=== PATIENT | male | born 1935 | race Caucasian/White ===

== ENCOUNTER 2019-10-07 07:54 | Outpatient (CLI) | payer MEDICARE, OTHER, SELFPAY ==
[2019-10-07 08:33] LABS: Blood Urea Nitrogen 23 mg/dL (9-20); Calcium 9.4 mg/dL (8.4-10.2); Carbon Dioxide 27 mmol/L (22-30); Chloride 101 mmol/L (98-107); Estimated Glomerular Filt Rate 48; Glucose 188 mg/dL (75-110); Potassium 4.7 mmol/L (3.4-5.0); Sodium 139 mmol/L (137-145)
== END 2019-10-07 07:55 | disposition home or self-care (01) ==
PROVIDERS: PCP Family Medicine; Visit Provider Family Medicine
DX: N18.3 Chronic kidney disease, stage 3 (moderate) (principal)
CPT/HCPCS: 36415; 80048

== ENCOUNTER 2019-10-12 09:29 | Outpatient (CLI) | payer MEDICARE, OTHER, SELFPAY ==
[2019-10-12 10:21] LABS: Potassium 4.4 mmol/L (3.4-5.0)
[2019-10-12 10:27] LABS: Albumin Level 3.7 g/dL (3.5-5.1); Blood Urea Nitrogen 28 mg/dL (9-20); Carbon Dioxide 24 mmol/L (22-30); Chloride 105 mmol/L (98-107); Estimated Glomerular Filt Rate 45; Glucose 177 mg/dL (75-110); Phosphorus 3.2 mg/dL (2.5-4.5); Sodium 140 mmol/L (137-145)
[2019-10-12 12:11] LABS: Creatinine Urine 154.1 mg/dL; Total Protein Urine Random 6 mg/dL
== END 2019-10-12 09:30 | disposition home or self-care (01) ==
LOC: ANHLAB 09:34
PROVIDERS: PCP Family Medicine; Visit Provider Internal Medicine Nephrology
DX: N18.3 Chronic kidney disease, stage 3 (moderate) (principal); E11.9 Type 2 diabetes mellitus without complications; I10 Essential (primary) hypertension; R80.8 Other proteinuria
CPT/HCPCS: 36415; 80069; 82570; 84156

== ENCOUNTER 2020-04-12 09:13 | Outpatient (CLI) | payer MEDICARE, OTHER, SELFPAY ==
[2020-04-12 09:41] LABS: Total Protein Urine Random 7 mg/dL
[2020-04-12 09:50] LABS: Hemoglobin A1C 6.3 % (<5.7)
[2020-04-12 10:13] LABS: Albumin Level 3.9 g/dL (3.5-5.1); Anion Gap 6 mmol/L (8-16); Blood Urea Nitrogen 25 mg/dL (9-20); Calcium 9.3 mg/dL (8.4-10.2); Carbon Dioxide 24 mmol/L (22-30); Chloride 107 mmol/L (98-107); Estimated Glomerular Filt Rate 45; Glucose 156 mg/dL (75-110); Phosphorus 3.3 mg/dL (2.5-4.5); Potassium 4.3 mmol/L (3.4-5.0); Sodium 137 mmol/L (137-145)
[2020-04-12 10:25] LABS: Parathyroid Intact 35.7 pg/mL (7.5-53.5); Vitamin D 25 Hydroxy 54.9 ng/mL
[2020-04-12 10:27] LABS: Creatinine Urine 122.7 mg/dL
== END 2020-04-12 09:14 | disposition home or self-care (01) ==
PROVIDERS: PCP Family Medicine; Visit Provider Internal Medicine Nephrology
DX: R80.8 Other proteinuria (principal); E11.9 Type 2 diabetes mellitus without complications; I12.9 Hypertensive chronic kidney disease with stage 1 through stage 4 chronic kidney disease, or unspecified chronic kidney disease; N18.3 Chronic kidney disease, stage 3 (moderate)
CPT/HCPCS: 36415; 80069; 82306; 82570; 83036; 83970; 84156

== ENCOUNTER 2020-10-16 07:37 | Outpatient (CLI) | payer MEDICARE, OTHER, SELFPAY ==
[2020-10-16 08:06] LABS: Creatinine Urine 93.4 mg/dL; Total Protein Urine Random 7 mg/dL; Ur Ttl Prot Creatinine Ratio 0.07 mg/mg (0-0.20)
[2020-10-16 08:11] LABS: Albumin Level 3.7 g/dL (3.5-5.1); Anion Gap 4 mmol/L (8-16); Blood Urea Nitrogen 34 mg/dL (9-20); Calcium 9.3 mg/dL (8.4-10.2); Carbon Dioxide 28 mmol/L (22-30); Chloride 107 mmol/L (98-107); Estimated Glomerular Filt Rate 41; Glucose 141 mg/dL (75-110); Phosphorus 3.2 mg/dL (2.5-4.5); Potassium 4.1 mmol/L (3.4-5.0); Sodium 139 mmol/L (137-145)
== END 2020-10-16 07:38 | disposition home or self-care (01) ==
PROVIDERS: PCP Family Medicine; Visit Provider Internal Medicine Nephrology
DX: E11.9 Type 2 diabetes mellitus without complications (principal); I12.9 Hypertensive chronic kidney disease with stage 1 through stage 4 chronic kidney disease, or unspecified chronic kidney disease; N18.30 Chronic kidney disease, stage 3 unspecified; R80.8 Other proteinuria
CPT/HCPCS: 36415; 80069; 82570; 84156

== ENCOUNTER 2020-12-29 09:06 | Outpatient (CLI) | payer MEDICARE, OTHER, SELFPAY ==
[2020-12-29 10:02] LABS: Hematocrit 39.4 % (42.0-52.0); Hemoglobin 12.9 g/dL (14.0-18.0); Mean Corpuscular HGB Conc 32.7 g/dl (32-36); Mean Corpuscular Hemoglobin 29.9 pg (26-34); Mean Corpuscular Volume 91.4 fl (80-100); Mean Platelet Volume 9.7 fl (7.4-10.4); Platelet Count Result 154 k/mm3 (150-375); Red Blood Count 4.31 M/mm3 (4.6-6.20); Red Cell Distribution Width 14.1 % (11.5-14.5); White Blood Count 7.7 K/mm3 (4.5-10.0)
[2020-12-29 10:13] LABS: Alanine Aminotransferase 18 U/L (4-50); Alkaline Phosphatase 60 U/L (38-126); Anion Gap 4 mmol/L (8-16); Aspartate Amino Transferase 22 U/L (17-59); Bilirubin,Total 0.4 mg/dL (0.2-1.3); Blood Urea Nitrogen 32 mg/dL (9-20); Calcium 9.7 mg/dL (8.4-10.2); Carbon Dioxide 26 mmol/L (22-30); Chloride 110 mmol/L (98-107); Cholesterol 170 mg/dL (0-200); Estimated Glomerular Filt Rate 34; Glucose 160 mg/dL (75-110); HDL Direct 53 mg/dL; Potassium 4.6 mmol/L (3.4-5.0); Sodium 140 mmol/L (137-145); Triglycerides 79 mg/dL (<150); Uric Acid 5.8 mg/dL (3.5-8.5)
[2020-12-29 10:15] LABS: Hemoglobin A1C 6.6 % (<5.7)
[2020-12-29 10:25] LABS: LDL Cholesterol Direct 79 mg/dL
[2020-12-29 10:44] LABS: Prostate Specific Antigen 0.4 ng/mL (< OR = 4.0)
== END 2020-12-29 09:07 | disposition home or self-care (01) ==
PROVIDERS: PCP Family Medicine; Visit Provider Family Medicine
DX: E78.2 Mixed hyperlipidemia (principal); N40.0 Benign prostatic hyperplasia without lower urinary tract symptoms; Z12.5 Encounter for screening for malignant neoplasm of prostate; Z13.220 Encounter for screening for lipoid disorders; E11.9 Type 2 diabetes mellitus without complications; D64.9 Anemia, unspecified; M10.9 Gout, unspecified; N18.30 Chronic kidney disease, stage 3 unspecified
CPT/HCPCS: 36415; 80048; 80061; 80076; 83036; 84153; 84550; 85027; G0103

== ENCOUNTER 2021-03-08 20:00 | Inpatient (IN) | payer MEDICARE, OTHER, SELFPAY ==
--- NOTE | ~2021-03-08 | XR_ITS ---
EXAMINATION: XR abdomen/kub 1V INDICATION: Possible constipation, vomiting TECHNIQUE: Supine views of the abdomen were obtained on 2 radiographs. COMPARISON: None FINDINGS: There is a moderate volume of stool in the rectum. No dilated loops of bowel are evident. N o free intraperitoneal gas is identified. There is severe lumbar spondylosis. IMPRESSION: 1. Fecal impaction. Reviewed, dictated and finalized at location A. IMPRESSION: 1. Fecal impaction.
--- NOTE | ~2021-03-08 | CT_ITS ---
EXAMINATION: CT abdomen pelvis wo con DATE: 03/08/2021 22:17 INDICATION: Nausea and constipation TECHNIQUE: Computed tomography (CT) of the abdomen and pelvis was performed without intravenous contr ast. The dose-length product (DLP) was 912.38 mGy-cm. Automated exposure control and iterative recons truction technique were employed. COMPARISON: None FINDINGS: Minimal dependent atelectasis is present in the lung bases. The heart size is normal. There is calcified coronary artery atherosclerosis. A small pericardial effusion is present. There is a sm all sliding hiatal hernia. The liver, spleen, pancreas, gallbladder, and adrenal glands are normal. T here is an 8 mm hemorrhagic cyst of the right kidney. There is atrophy of the kidneys. The urinary bl adder is distended. There is a large volume of stool in the rectum. No pathologically enlarged abdomi nal or pelvic lymph nodes are identified. There is no free intraperitoneal gas or evidence of bowel o bstruction. There is severe lumbar spondylosis. IMPRESSION: 1. Marked distention of the urinary bladder. 2. Large volume of stool in the rectum. Reviewed, dictated and finalized at location A.
--- NOTE | ~2021-03-08 | XR_ITS ---
XR abdomen/kub 1V 03/09/2021 12:54 Indication: Fecal impaction Procedure: KUB Comparison: Comparison to multiple prior studies sequentially, with oldest reviewed study dated 03/08. Findings: Bowel gas pattern is nonobstructive. Moderate colonic fecal loading. No evidence for nephro lithiasis. Mild lumbar spondylosis. No acute osseous abnormality. Impression: 1: Nonobstructive bowel gas pattern. Reviewed, dictated and finalized at location A. Impression: 1: Nonobstructive bowel gas pattern.
--- NOTE | ~2021-03-08 | XR_ITS ---
EXAMINATION: XR abdomen/kub 1V DATE: 03/09/2021 09:33 INDICATION: Fecal impaction. TECHNIQUE: A supine view of the abdomen on 2 radiographs was obtained. COMPARISON: 06/08/2021 FINDINGS: No dilated loops of bowel to suggest obstruction. Interval decrease in a still moderate amount of sto ol at the rectum. Small heterotopic ossicle in the right abdomen. Severe lower lumbar spondylosis. IMPRESSION: 1. Decrease in a now moderate amount of stool at the rectum. Reviewed, dictated and finalized at location A.
--- NOTE | ~2021-03-08 | XR_ITS ---
EXAMINATION: XR abdomen/kub 1V INDICATION: Fecal impaction TECHNIQUE: Supine view of the abdomen is obtained COMPARISON: 03/09/2021 FINDINGS: There is an expected volume of colonic stool. No persistent fecal impaction is seen. The abimael wel gas pattern is normal. There is moderate osteoarthritis of the hips. Severe lumbar spondylosis is noted. IMPRESSION: 1. Expected volume of colonic stool without persistent fecal impaction. Reviewed, dictated and finalized at location A.
[2021-03-08 20:05] VITALS: BP 183/98; PULSE 97; RESP 18; O2SAT 99
--- NOTE | 2021-03-08 20:19 | PC.NURSE ---
Pt daughter to be updated by phone. [phone].
[2021-03-08 20:20] VITALS: PULSE 103
[2021-03-08 21:27] LABS: Basophils Percent Auto 0.2 % (0.2-1.2); Eosinophils Percent Auto 0.1 % (0-4.4); Hematocrit 39.4 % (42.0-52.0); Hemoglobin 13.5 g/dL (14.0-18.0); Immature Granulocyte Absolute 0.06 K/mm3 (0.00-0.031); Immature Granulocyte Percent A 0.4 % (0-0.5); Lymphocytes Absolute Auto 0.87 K/mm3 (0.9-3.2); Lymphocytes Percent Auto 5.9 % (18.3-44.2); Mean Corpuscular HGB Conc 34.3 g/dl (32-36); Mean Corpuscular Volume 87.6 fl (80-100); Mean Platelet Volume 9.4 fl (7.4-10.4); Monocytes Absolute Auto 0.7 K/mm3 (0.1-0.6); Neutrophils Absolute Auto 12.9 K/mm3 (1.3-6.7); Neutrophils Percent Auto 88.4 % (45.5-73.1); Platelet Count Result 165 k/mm3 (150-375); Red Cell Distribution Width 13.4 % (11.5-14.5); White Blood Count 14.7 K/mm3 (4.5-10.0)
[2021-03-08 21:30] VITALS: BP 181/98; PULSE 83; RESP 25; O2SAT 100
[2021-03-08 21:38] LABS: Alanine Aminotransferase 19 U/L (4-50); Albumin Level 4.2 g/dL (3.5-5.1); Alkaline Phosphatase 73 U/L (38-126); Anion Gap 16 mmol/L (8-16); Aspartate Amino Transferase 23 U/L (17-59); Bilirubin,Total 0.7 mg/dL (0.2-1.3); Blood Urea Nitrogen 30 mg/dL (9-20); Calcium 9.9 mg/dL (8.4-10.2); Carbon Dioxide 16 mmol/L (22-30); Chloride 106 mmol/L (98-107); Estimated CRCL calculation 32 ml/min; Estimated Glomerular Filt Rate 36; Glucose 157 mg/dL (65-110); Potassium 4.1 mmol/L (3.4-5.0); Sodium 138 mmol/L (137-145)
[2021-03-08 22:00] VITALS: BP 181/94; PULSE 88; RESP 22; O2SAT 100
--- NOTE | 2021-03-08 22:00 | PC.NURSE ---
Pt unable to void at this time. Refusing straight catheter at this time. Urinal remains at bedside.
--- NOTE | 2021-03-08 22:06 | ED.GENADULT ---
HPI - General Adult General Chief complaint: Unspecified Stated complaint: Possible constipation Time Seen by Provider: 03/08/21 20:40 Source: patient History of Present Illness HPI narrative: Patient is a 85 y/o male complaining of generalized abdominal pain for last 3 days. He describes his pain as cramping and rates it as 8/10. There is no pain radiation. There is no alleviating or exacerbating factor. He had one episode of vomiting. He also feels constipated. His last BM was 3 days ago. Related Data Home Medications Medication Instructions Recorded Confirmed albuterol sulfate 90 mcg/actuation 1 puff INHALATION Q4H PRN 07/12/19 03/09/21 aerosol inhaler Januvia 100 mg PO QPM 03/09/21 03/09/21 Toviaz 4 mg PO QAM 03/09/21 03/09/21 aspirin [Adult Aspirin] 81 mg PO DAILY 03/09/21 03/09/21 febuxostat 40 mg PO QPM 03/09/21 03/09/21 finasteride 5 mg PO QPM 03/09/21 03/09/21 lisinopril 10 mg PO QAM 03/09/21 03/09/21 simvastatin 20 mg PO QPM 03/09/21 03/09/21 Allergies Allergy/AdvReac Type Severity Reaction Status Date / Time amoxicillin Allergy Unknown Rash Verified 03/09/21 02:51 Penicillins Allergy Unknown Rash Verified 12/29/20 07:33 Sulfa (Sulfonamide Allergy Unknown Rash Verified 03/09/21 02:51 Antibiotics) sulfanilamide Allergy Unknown Rash Verified 03/09/21 02:51 sulfur dioxide Allergy Unknown Rash Verified 03/09/21 02:51 tetracycline Allergy Unknown Rash Verified 03/09/21 02:51 Review of Systems Constitutional: Constitutional: Denies chills, Denies fever(s), Denies headache(s) and Denies weakness Eyes: Eyes: Denies blurry vision ENT: Denies headache(s) and Denies neck pain Cardiovascular: Cardiovascular: Denies chest pain and Denies dyspnea Respiratory: Respiratory: Denies cough and Denies dyspnea Gastrointestinal: Gastrointestinal: Reports abdominal pain, Denies diarrhea, Reports nausea and Reports vomiting Genitourinary: Genitourinary: Denies hematuria and Denies dysuria Musculoskeletal: Musculoskeletal: Denies back pain and Denies neck pain Neurologic: Denies headache(s) and Denies weakness [facility] Past Medical History Medical History Anemia, unspecified BMI 31.0-31.9,adult BPH w/o urinary obs/LUTS Gout, unspecified HTN (hypertension) Mixed hyperlipidemia ERNIE on CPAP Primary insomnia Primary osteoarthritis of both knees Type 2 diabetes mellitus without complications Family History Family History Sibling Hypertension Cerebrovascular accident Family history of diabetes mellitus in first degree relative Family history of coronary artery disease Family history of malignant neoplasm of breast in first degree relative Diabetes mellitus Father Family history of coronary artery disease Social History Social History Smoking packs per day: 2 Smoking cigarettes per day: 40.0 Years smoked: 40 Smoking pack-years: 80.00 Smoking status: Former smoker Tobacco type: cigarettes and cigars Second hand tobacco smoke exposure: No Alcohol intake: never Substance use: never Gender identity (if verbalized by the patient): Male Spiritual care concerns: No Exam Const: General: no acute distress and well developed Orientation/consciousness: oriented to person, oriented to place, oriented to time and patient oriented x3 HENMT: Head: normocephalic Ears: external ears normal General nose exam: Normal external nose present Eyes: General: appearance normal, both eyes and all related structures Conjunctivae: conjunctivae normal Neck: Neck: normal visual inspection and full ROM Chest: Chest palpation & inspection: normal inspection of the chest and no tenderness Resp: Effort & Inspection: normal respiratory effort Auscultation: clear to auscultation bilaterally Cardio: Rate: regular rate Rhythm: regular r
[2021-03-08] MEDS: MAGNESIUM CITRATE 300 ML BTL PO (22:07)
--- NOTE | 2021-03-08 22:08 | PC.NURSE ---
Pt to CT at this time.
[2021-03-09 00:19] LABS: Add Urine Microscopic? YES; Appearance Urine Clear (Clear); Bacteria Urine Trace /hpf; Bilirubin Urine Negative (Negative); Blood Urine 3+ (Negative); Color Urine Yellow (Yellow); Glucose Urine UA Negative (Negative); Ketones Urine Trace mg/dL (Negative); Leukocyte Esterase Ur Negative LEU/UL (Negative); Nitrate Urine Negative (Negative); Protein Urine Negative (Negative); RBC Urine >75 /hpf (0-2); Specific Grav Ur 1.013 (1.001-1.035); Urobilinogen Urine Negative mg/dL (<2.0)
[2021-03-09 00:51] VITALS: BP 142/72; PULSE 88; RESP 17; O2SAT 98
[2021-03-09 01:38] VITALS: BP 174/80; PULSE 95; RESP 20; TEMP 36.6; O2SAT 99
[2021-03-09 01:59] VITALS: BMI 29.6
--- NOTE | 2021-03-09 02:03 | PC.NURSE ---
This patient, Rolf Webster, was admitted to 3 [facility] Surg Room 327-01. Patient/family oriented to hospital policies and general routines including ID bracelet, bed and alarms, visiting hours, pain management, procedures, bathroom and other care routines, personal items, smoking policy, room service/diet, and visiting hours. Information on how to activate the Rapid Response Team has been discussed. Patient/Family are encouraged to report perceived risks to care and to ask questions if they do not understand what they are told or what they should do.
[2021-03-09] MEDS: SODIUM CHLORIDE 0.9% IV 1,000 ML 125 ML IV CONT (02:31)
[2021-03-09 05:23] VITALS: BP 135/60; PULSE 69; RESP 18; TEMP 36.4; O2SAT 98
[2021-03-09 08:48] LABS: Glucose Point of Care 179 mg/dl (65-105)
[2021-03-09] MEDS: ASPIRIN 81 MG ENTERIC TABLET PO (09:56)
[2021-03-09] MEDS: lisinopriL 10 MG TABLET PO (09:56)
[2021-03-09 12:01] LABS: Hematocrit 37.1 % (42.0-52.0); Hemoglobin 12.2 g/dL (14.0-18.0); Mean Corpuscular HGB Conc 32.9 g/dl (32-36); Mean Corpuscular Hemoglobin 29.5 pg (26-34); Mean Corpuscular Volume 89.6 fl (80-100); Mean Platelet Volume 9.3 fl (7.4-10.4); Platelet Count Result 152 k/mm3 (150-375); Red Blood Count 4.14 M/mm3 (4.6-6.20); Red Cell Distribution Width 13.6 % (11.5-14.5); White Blood Count 12.8 K/mm3 (4.5-10.0)
[2021-03-09 12:10] LABS: Anion Gap 7 mmol/L (8-16); Blood Urea Nitrogen 30 mg/dL (9-20); Calcium 9.2 mg/dL (8.4-10.2); Carbon Dioxide 27 mmol/L (22-30); Chloride 107 mmol/L (98-107); Estimated CRCL calculation 31 ml/min; Estimated Glomerular Filt Rate 41; Glucose 152 mg/dL (65-110); Potassium 4.6 mmol/L (3.4-5.0); Sodium 141 mmol/L (137-145)
[2021-03-09 13:15] LABS: Glucose Point of Care 107 mg/dl (65-105)
--- NOTE | 2021-03-09 13:28 | WPDURCON ---
Assessment and Plan Assessment and plan (1) BPH w/o urinary obs/LUTS: Code(s): N40.0 - Benign prostatic hyperplasia without lower urinary tract symptoms Status: Acute Assessment and Plan: Patient has been on Finasteride for >6 years, continue Finasteride. Start Flomax. Ok to do a voiding trial prior to discharge. (2) UTI (urinary tract infection): Code(s): N39.0 - Urinary tract infection, site not specified Status: Acute Assessment and Plan: Will reflux UA to culture and start antibiotics, secondary to retention. (3) Retention of urine: Code(s): R33.9 - Retention of urine, unspecified Status: Acute Assessment and Plan: Secondary to constipation versus failure of Finasteride. Follow up in the office in 2-[address] Walker. No further evaluation needed. Urology Consult Note HPI Date Seen: 03/09/21 Requesting Physician: Danielle Moreau PA-C Primary Care Provider: Gavino Erickson MD Consult Narrative Narrative: Rolf Webster is a 85 year old male who presented to the ER yesterday with acute onset of pain in the abdomen and difficulty urinating. He denies dysuria, hematuria, flank pain or nausea at this time, but did have one episode of vomiting. His WBC was elevated but is decreasing, now it is at 14.7 as of yesterday and creatinine of 1.80. His WBC today is 12.9 and creatinine is decreasing as well to 1.60. He states he has CKD and see's Dr. Polk. His CT scan in the ER shows a distended bladder and a large amount of stool in the rectum as well as kidney atrophy. He states he is a patient of Dr. Walker' and has been on Finasteride for 6 years and has never had retention before that required a catheter. Once his merritt was placed he states >1000cc was removed, his urine is dark mateo in color and slightly cloudy. His UA was suspicious of a UTI, no culture was obtained. Review of Systems Cardiovascular: Cardiovascular: Reports no additional cardiovascular complaints and Denies chest pain Respiratory: Respiratory: Reports no additional respiratory complaints Gastrointestinal: Gastrointestinal: Denies abdominal pain, Denies nausea and Denies vomiting Genitourinary: Genitourinary: Denies hematuria, Denies dysuria, Denies flank pain, Denies urinary frequency, Reports urinary hesitancy and Denies urinary urgency [facility] Past Medical History Medical History BMI 31.0-31.9,adult Family History Family History Sibling Hypertension Cerebrovascular accident Family history of diabetes mellitus in first degree relative Family history of coronary artery disease Family history of malignant neoplasm of breast in first degree relative Diabetes mellitus Father Family history of coronary artery disease Social History Social History Smoking packs per day: 2 Smoking cigarettes per day: 40.0 Years smoked: 40 Smoking pack-years: 80.00 Smoking status: Former smoker Tobacco type: cigarettes and cigars Second hand tobacco smoke exposure: No Alcohol intake: never Substance use: never Gender identity (if verbalized by the patient): Male Spiritual care concerns: No Meds Home Medications and Allergies Home Medications Medication Instructions Recorded Confirmed Type albuterol sulfate 90 mcg/actuation 1 puff INHALATION Q4H PRN 07/12/19 03/09/21 History aerosol inhaler blood sugar diagnostic #300 each 08/29/20 03/09/21 Rx glimepiride 2 mg tablet 2 mg PO QAM #90 tablet 02/16/21 03/09/21 Rx Januvia 100 mg PO QPM 03/09/21 03/09/21 History Toviaz 4 mg PO QAM 03/09/21 03/09/21 History aspirin [Adult Aspirin] 81 mg PO DAILY 03/09/21 03/09/21 History febuxostat 40 mg PO QPM 03/09/21 03/09/21 History finasteride 5 mg PO QPM 03/09/21 03/09/21 History lisinopril 10 mg PO QAM 03/09/21 07
--- NOTE | 2021-03-09 13:41 | PM.IMPN ---
Progress Note: A&P Time Spent With Patient Time with patient: 25 - 35 minutes Subjective Date/time seen: 03/09/21 13:41 Interval history: * Review of Systems Review of Systems: All systems reviewed & are unremarkable except as noted in HPI and below Exam Narrative: General: *-year-old * laying flat in bed. Appears comfortable. In no acute distress. Skin: No jaundice or cyanosis. Good skin turgor. Neck: Full range of motion. Supple. Nontender. Respiratory: Lungs are clear to auscultation bilaterally. No bony chest wall tenderness. Cardiovascular: The heart has a regular rate and rhythm without murmur. No carotid bruits. Lower extremities: No lower extremity edema. Distal pulses are easily palpated. No calf tenderness to palpation. Gastrointestinal: The abdomen is soft, nontender and nondistended with active bowel sounds. Psychiatric: Lucid and oriented. Memory intact. Neurologic: No focal deficits. Speech is clear. No facial drooping. Objective Data Vital Signs Vital Signs: Vital Signs - 24 hr 03/08/21 20:05 03/08/21 20:20 03/08/21 21:30 Temperature Pulse Rate 97 103 H 83 Respiratory Rate 18 25 H Blood Pressure 183/98 H 181/98 H Pulse Oximetry 99 100 03/08/21 22:00 03/09/21 00:51 03/09/21 01:38 Temperature 97.8 F Pulse Rate 88 88 95 Respiratory Rate 22 H 17 20 Blood Pressure 181/94 H 142/72 H 174/80 H Pulse Oximetry 100 98 99 03/09/21 05:23 Temperature 97.5 F L Pulse Rate 69 Respiratory Rate 18 Blood Pressure 135/60 Pulse Oximetry 98 Intake/Output Intake/Output: Intake & Output 03/06/21 03/07/21 03/08/21 03/09/21 23:59 23:59 23:59 23:59 Intake Total 1340 Output Total 1 Balance 1339 Meds/Results Medications: Active Medications Generic Name Dose Route Start Last Admin Trade Name Freq PRN Reason Stop Dose Admin Albuterol 1 puff 03/09/21 08:41 Albuterol Sulfate (*Sp) Aerosol 1 Puff INHALATION Q4HRT PRN Shortness Of Breath Or Wheezing Aspirin 81 mg 03/09/21 09:00 03/09/21 09:56 Aspirin 81 Mg Enteric Tablet PO 81 mg QAM POPPY Administration Dextrose 12.5 gm 03/09/21 08:42 Dextrose 50% 25 Gm/50 Ml Syringe IV PUSH PRN PRN Hypoglycemia Protocol Docusate Sodium 100 mg 03/09/21 21:00 Docusate Sodium 100 Mg Capsule PO Q12HR [facility] Finasteride 5 mg 03/09/21 18:00 Finasteride 5 Mg Tablet PO QPM [facility] Glucagon 1 mg 03/09/21 08:42 Glucagon For Inj 1 Mg Vial IM PRN PRN Hypoglycemia Protocol Glucose 15 gm 03/09/21 08:42 Glucose Oral Gel 15 Gm Of Glucse In 37.5 Gm Tube PO PRN PRN Hypoglycemia Protocol Dextrose 1,000 mls @ 100 mls/hr 03/09/21 08:42 Dextrose 5% 1,000 Ml IVPB PRN PRN Hypoglycemia Protocol Insulin Aspart 3 - 6 units 03/09/21 12:00 03/09/21 13:24 Insulin Aspart (*Bkc) 100 Units/Ml SUB-Q Not Given TIDWM [facility] Protocol Lisinopril 10 mg 03/09/21 09:00 03/09/21 09:56 Lisinopril 10 Mg Tablet PO 10 mg QAM [facility] Administration Polyethylene Glycol 17 gm 03/10/21 09:00 Polyethylene Glycol 3350 17 Gm Powd.Pack PO QAM [facility] Simvastatin 20 mg 03/09/21 18:00 Simvastatin 20 Mg Tablet PO QPM [facility] Radiology Results: ITS Impressions Abdomen/Pelvis CT 03/08/21 22:19 IMPRESSION: 1. Marked distention of the urinary bladder. 2. Large volume of stool in the rectum. Abdomen X-Ray 03/09/21 13:18 Impression: 1: Nonobstructive bowel gas pattern. Labs Labs: Laboratory Results - last 24 hr 03/08/21 03/08/21 03/09/21 21:22 21:22 00:07 WBC 14.7 H RBC 4.50 L Hgb 13.5 L Hct 39.4 L MCV 87.6 MCH 30.0 MCHC 34.3 RDW 13.4 Plt Count 165 MPV 9.4 Immature Gran % (Auto) 0.4 Neut % (Auto) 88.4 H Lymph % (Auto) 5.9 L Ward % (Auto) 5.0 Eos % (Auto) 0.1 Baso % (Auto) 0.2 Lymph # (Auto) 0.87 L Ward # (Auto) 0.7 H Eos #
[2021-03-09 14:00] VITALS: BP 134/60; PULSE 60; RESP 16; TEMP 36.2; O2SAT 100
--- NOTE | 2021-03-09 16:20 | PM.IMHP ---
H&P: HPI History of Present Illness Date/Time: 03/09/21 16:20 Chief Complaint: The patient is an 85-year-old man with a history of diabetes, hyperlipidemia, BPH, who presented to the emergency room with abdominal pain, constipation. the patient's daughter states he has had issues with constipation over the last several months. He only takes p.r.n. stool softeners. His last bowel movement was Friday03/05/21 and since then he has been feeling more constipated, with some nausea, abdominal bloating and discomfort. He also reports having issues with urinary retention since then as well. He does not feel like he has been emptying his bladder completely. He denies any burning with urination, frequent urination, but he has noticed a dark color to his urine. he denies any fevers, chills, chest pain, shortness of breath, cough, vomiting, leg swelling, calf pain, or any other symptoms at this time. Review of Systems Review of Systems: All systems reviewed & are unremarkable except as noted in HPI and below PMFSH Past Medical History Medical History Anemia, unspecified BMI 31.0-31.9,adult BPH w/o urinary obs/LUTS Gout, unspecified HTN (hypertension) Mixed hyperlipidemia ERNIE on CPAP Primary insomnia Primary osteoarthritis of both knees Type 2 diabetes mellitus without complications Family History Family History Sibling Hypertension Cerebrovascular accident Family history of diabetes mellitus in first degree relative Family history of coronary artery disease Family history of malignant neoplasm of breast in first degree relative Diabetes mellitus Father Family history of coronary artery disease Social History Social History Smoking packs per day: 2 Smoking cigarettes per day: 40.0 Years smoked: 40 Smoking pack-years: 80.00 Smoking status: Former smoker Tobacco type: cigarettes and cigars Second hand tobacco smoke exposure: No Alcohol intake: never Substance use: never Gender identity (if verbalized by the patient): Male Spiritual care concerns: No Meds Home Medications and Allergies Home Medications Medication Instructions Recorded Confirmed Type albuterol sulfate 90 mcg/actuation 1 puff INHALATION Q4H PRN 07/12/19 03/09/21 History aerosol inhaler blood sugar diagnostic #300 each 08/29/20 03/09/21 Rx glimepiride 2 mg tablet 2 mg PO QAM #90 tablet 02/16/21 03/09/21 Rx Januvia 100 mg PO QPM 03/09/21 03/09/21 History Toviaz 4 mg PO QAM 03/09/21 03/09/21 History aspirin [Adult Aspirin] 81 mg PO DAILY 03/09/21 03/09/21 History febuxostat 40 mg PO QPM 03/09/21 03/09/21 History finasteride 5 mg PO QPM 03/09/21 03/09/21 History lisinopril 10 mg PO QAM 03/09/21 03/09/21 History simvastatin 20 mg PO QPM 03/09/21 03/09/21 History Allergies Allergy/AdvReac Type Severity Reaction Status Date / Time amoxicillin Allergy Unknown Rash Verified 03/09/21 02:51 Penicillins Allergy Unknown Rash Verified 12/29/20 07:33 Sulfa (Sulfonamide Allergy Unknown Rash Verified 03/09/21 02:51 Antibiotics) sulfanilamide Allergy Unknown Rash Verified 03/09/21 02:51 sulfur dioxide Allergy Unknown Rash Verified 03/09/21 02:51 tetracycline Allergy Unknown Rash Verified 03/09/21 02:51 Vital Signs Vital Signs - 24 hr 03/08/21 20:05 03/08/21 20:20 03/08/21 21:30 Temperature Pulse Rate 97 103 H 83 Respiratory Rate 18 25 H Blood Pressure 183/98 H 181/98 H Pulse Oximetry 99 100 03/08/21 22:00 03/09/21 00:51 03/09/21 01:38 Temperature 97.8 F Pulse Rate 88 88 95 Respiratory Rate 22 H 17 20 Blood Pressure 181/94 H 142/72 H 174/80 H Pulse Oximetry 100 98 99 03/09/21 05:23 03/09/21 14:00 Temperature 97.5 F L 97.1 F L Pulse Rate 69 60 Respiratory Rate 18 16 Blood Pressure 135/60 134/60 Pulse Oximetry 98 100 Exam Na
[2021-03-09] MEDS: FINASTERIDE 5 MG TABLET PO (17:11)
[2021-03-09] MEDS: SIMVASTATIN 20 MG TABLET PO (17:11)
[2021-03-09 17:22] LABS: Glucose Point of Care 100 mg/dl (65-105)
[2021-03-09] MEDS: ENOXAPARIN 40 MG/0.4 ML SYRINGE SUB-Q (17:57)
[2021-03-09] MEDS: DOCUSATE SODIUM 100 MG CAPSULE PO (20:25)
[2021-03-09 20:31] LABS: Glucose Point of Care 199 mg/dl (65-105)
[2021-03-09 22:00] VITALS: BP 131/60; PULSE 62; RESP 18; TEMP 36.4; O2SAT 95
[2021-03-10 05:59] LABS: Basophils Percent Auto 0.4 % (0.2-1.2); Eosinophils Absolute Auto 0.3 K/mm3 (0-0.3); Eosinophils Percent Auto 3.6 % (0-4.4); Hematocrit 34.9 % (42.0-52.0); Hemoglobin 11.5 g/dL (14.0-18.0); Immature Granulocyte Absolute 0.03 K/mm3 (0.00-0.031); Immature Granulocyte Percent A 0.3 % (0-0.5); Lymphocytes Absolute Auto 2.25 K/mm3 (0.9-3.2); Lymphocytes Percent Auto 24.7 % (18.3-44.2); Mean Corpuscular Hemoglobin 29.6 pg (26-34); Mean Corpuscular Volume 89.9 fl (80-100); Mean Platelet Volume 9.7 fl (7.4-10.4); Monocytes Absolute Auto 1.1 K/mm3 (0.1-0.6); Monocytes Percent Auto 11.8 % (2.6-8.5); Neutrophils Absolute Auto 5.4 K/mm3 (1.3-6.7); Neutrophils Percent Auto 59.2 % (45.5-73.1); Platelet Count Result 141 k/mm3 (150-375); Red Blood Count 3.88 M/mm3 (4.6-6.20); Red Cell Distribution Width 13.5 % (11.5-14.5); White Blood Count 9.1 K/mm3 (4.5-10.0)
[2021-03-10 06:00] VITALS: BP 131/60; PULSE 62; RESP 18; TEMP 37.2; O2SAT 97
[2021-03-10 06:08] LABS: Anion Gap 5 mmol/L (8-16); Blood Urea Nitrogen 26 mg/dL (9-20); Calcium 8.6 mg/dL (8.4-10.2); Carbon Dioxide 24 mmol/L (22-30); Chloride 107 mmol/L (98-107); Estimated CRCL calculation 36 ml/min; Estimated Glomerular Filt Rate 48; Glucose 136 mg/dL (65-110); Potassium 3.9 mmol/L (3.4-5.0); Sodium 136 mmol/L (137-145)
[2021-03-10] MEDS: lisinopriL 10 MG TABLET PO (09:38)
[2021-03-10] MEDS: polyethylene glycoL 3350 17 GM POWD.PACK PO (09:38)
[2021-03-10] MEDS: ASPIRIN 81 MG ENTERIC TABLET PO (09:38)
[2021-03-10] MEDS: DOCUSATE SODIUM 100 MG CAPSULE PO ×2 (09:38→21:28)
--- NOTE | 2021-03-10 10:23 | PC.NURSE ---
Per [employer] this patient's blood sugar was 155 and does not need insulin this morning. The glucometers are not documenting at this moment.
[2021-03-10 11:19] LABS: Glucose Point of Care 155 mg/dl (65-105)
[2021-03-10 12:10] LABS: Glucose Point of Care 182 mg/dl (65-105)
[2021-03-10 14:00] VITALS: BP 149/62; PULSE 66; RESP 14; TEMP 36.8; O2SAT 98
[2021-03-10 14:57] VITALS: O2SAT 96
--- NOTE | 2021-03-10 15:21 | PM.IMPN ---
Progress Note: A&P Assessment and Plan (1) Fecal impaction: Code(s): K56.41 - Fecal impaction Status: Acute Assessment and Plan: Improved s/p magnesium citrate and enema He has had multiple bowel movements Repeat KUB this a.m.-->Expected volume of colonic stool without persistent fecal impaction Continue with Colace twice daily, MiraLax in the morning, and enema p.r.n. (2) UTI (urinary tract infection): Code(s): N39.0 - Urinary tract infection, site not specified Status: Acute Assessment and Plan: Concer for UTI Continue IV Levaquin (allergy to PCNs) Follow Urology following, recommendations appreciated Continue Flomax and finasteride will initiated voiding trial (3) Retention of urine: Code(s): R33.9 - Retention of urine, unspecified Status: Acute Assessment and Plan: Treatment as above (4) Chronic kidney disease, stage 3 (moderate): Qualifiers: Chronic kidney disease stage 3 subtype: stage 3b (GFR 30-44) Qualified Code(s): N18.32 - Chronic kidney disease, stage 3b Code(s): N18.3 - Chronic kidney disease, stage 3 (moderate) Status: Acute Assessment and Plan: Creatinine is 1.6-->1.4 today Avoid nephrtoxins Renally dose all meds Monitor (5) Type 2 diabetes mellitus without complications: Qualifiers: Diabetes mellitus assisted insulin use: without assisted use Qualified Code(s): E11.9 - Type 2 diabetes mellitus without complications Code(s): E11.9 - Type 2 diabetes mellitus without complications Status: Acute Assessment and Plan: A1c 6.6 12/2020 Hold oral antihyperglycemics SSI, accuchecks Monitor Additional Plan the patient was placed in observation status DVT prophylaxis with subcu Lovenox Subjective Date/time seen: 03/10/21 15:21 Interval history: Pt seen and evaluated; daughter at the bedside; abdominal distension improved; denies any N/V/D constipation or abdominal pain Review of Systems Review of Systems: All systems reviewed & are unremarkable except as noted in HPI and below Exam Const: General: no acute distress, alert and awake Orientation/consciousness: patient oriented x3 HENMT: Head: normocephalic and atraumatic Ears: hearing grossly normal bilaterally and external ears normal Face and sinus: face symmetric Mouth: Yes Normal oral and palatal mucosa present Eyes: Pupils: Equal, round and reactive pupils present EOM: EOMs intact bilaterally Neck: Neck: full ROM, trachea midline and no JVD Thyroid: thyroid normal Chest: Chest palpation & inspection: normal inspection of the chest Resp: Effort & Inspection: normal respiratory effort Auscultation: clear to auscultation bilaterally Cardio: Jugular venous distension: no JVD Rate: regular rate Rhythm: regular rhythm Heart sounds: S1 normal heart sound present and S2 normal heart sound present GI: Inspection: normal to inspection GI Palp: Yes Soft to palpation Percussion: Yes normal to percussion Auscultation: normal bowel sounds : General: Yes no CVA tenderness Urinary Catheter: Urinary Catheter: patent and draining and urine clear Back/Spine/Pelvis: Back: no CVA tenderness Skin: General skin exam: normal color Rashes: no rashes Neuro: General: patient oriented x3 and CN's II-XI intact bilaterally Cranial nerves: Yes Equal, round and reactive pupils present Speech: normal speech Psych: Appearance: grossly normal Affect: normal affect Judgement: Good judgement present (Psych) Objective Data Vital Signs Vital Signs: Vital Signs - 24 hr 03/09/21 22:00 03/10/21 06:00 03/10/21 14:00 Temperature 36.4 C L 37.2 C 36.8 C Pulse Rate 62 62 66 Respiratory Rate 18 18 14 Blood Pressure 131/60 131/60 149/62 H Pulse Oximetry 95 97 98 03/10/21 14:57 Temperature Pulse Rate Respiratory Rate Blood Pressure Pulse Oximetry 96 Intake/Output Inta
[2021-03-10 16:46] LABS: Glucose Point of Care 143 mg/dl (65-105)
[2021-03-10] MEDS: FINASTERIDE 5 MG TABLET PO (17:04)
[2021-03-10] MEDS: SIMVASTATIN 20 MG TABLET PO (17:04)
[2021-03-10] MEDS: ENOXAPARIN 40 MG/0.4 ML SYRINGE SUB-Q (17:05)
[2021-03-10 21:32] LABS: Glucose Point of Care 161 mg/dl (65-105)
[2021-03-10 21:52] VITALS: PULSE 71; O2SAT 94
[2021-03-10 22:00] VITALS: BP 140/61; PULSE 60; RESP 16; TEMP 36.4; O2SAT 97
[2021-03-10 23:21] VITALS: PULSE 79; O2SAT 93
[2021-03-11 06:00] VITALS: BP 140/67; PULSE 51; RESP 16; TEMP 36.7; O2SAT 98
[2021-03-11 06:10] LABS: Basophils Absolute Auto 0.1 K/mm3 (0.0-0.1); Basophils Percent Auto 0.6 % (0.2-1.2); Eosinophils Absolute Auto 0.3 K/mm3 (0-0.3); Eosinophils Percent Auto 4.1 % (0-4.4); Hemoglobin 12.2 g/dL (14.0-18.0); Immature Granulocyte Absolute 0.02 K/mm3 (0.00-0.031); Immature Granulocyte Percent A 0.3 % (0-0.5); Lymphocytes Absolute Auto 2.67 K/mm3 (0.9-3.2); Lymphocytes Percent Auto 33.5 % (18.3-44.2); Mean Corpuscular Hemoglobin 29.4 pg (26-34); Mean Corpuscular Volume 89.2 fl (80-100); Mean Platelet Volume 9.8 fl (7.4-10.4); Monocytes Percent Auto 12.4 % (2.6-8.5); Neutrophils Absolute Auto 3.9 K/mm3 (1.3-6.7); Neutrophils Percent Auto 49.1 % (45.5-73.1); Platelet Count Result 160 k/mm3 (150-375); Red Blood Count 4.15 M/mm3 (4.6-6.20); Red Cell Distribution Width 13.2 % (11.5-14.5)
[2021-03-11 06:18] LABS: Anion Gap 6 mmol/L (8-16); Blood Urea Nitrogen 22 mg/dL (9-20); Calcium 9.1 mg/dL (8.4-10.2); Carbon Dioxide 26 mmol/L (22-30); Chloride 104 mmol/L (98-107); Estimated CRCL calculation 36 ml/min; Estimated Glomerular Filt Rate 48; Glucose 157 mg/dL (65-110); Potassium 4.5 mmol/L (3.4-5.0); Sodium 136 mmol/L (137-145)
[2021-03-11] MEDS: lisinopriL 10 MG TABLET PO (07:38)
[2021-03-11] MEDS: ASPIRIN 81 MG ENTERIC TABLET PO (07:38)
[2021-03-11] MEDS: DOCUSATE SODIUM 100 MG CAPSULE PO ×2 (07:38→21:48)
[2021-03-11] MEDS: polyethylene glycoL 3350 17 GM POWD.PACK PO (07:38)
[2021-03-11 11:48] LABS: Glucose Point of Care 137 mg/dl (65-105)
--- NOTE | 2021-03-11 13:37 | PM.IMPN ---
Progress Note: A&P Assessment and Plan (1) Fecal impaction: Code(s): K56.41 - Fecal impaction Status: Acute Assessment and Plan: Improved s/p magnesium citrate and enema He has had multiple bowel movements Repeat KUB this a.m.-->Expected volume of colonic stool without persistent fecal impaction Continue with Colace twice daily, MiraLax in the morning, and enema p.r.n. (2) UTI (urinary tract infection): Code(s): N39.0 - Urinary tract infection, site not specified Status: Acute Assessment and Plan: R/o S/p IV Levaquin (allergy to PCNs) UC with no growth Urology following, recommendations appreciated Continue Flomax and finasteride Voiding trial initiated (3) Retention of urine: Code(s): R33.9 - Retention of urine, unspecified Status: Acute Assessment and Plan: Treatment as above If persist may need to d/c with Hollingsworth cath (4) Chronic kidney disease, stage 3 (moderate): Qualifiers: Chronic kidney disease stage 3 subtype: stage 3b (GFR 30-44) Qualified Code(s): N18.32 - Chronic kidney disease, stage 3b Code(s): N18.3 - Chronic kidney disease, stage 3 (moderate) Status: Acute Assessment and Plan: Creatinine is 1.6-->1.4-->1.4 today Avoid nephrotoxins Renally dose all meds Monitor (5) Type 2 diabetes mellitus without complications: Qualifiers: 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: without middle or intermediate school principal use Qualified Code(s): E11.9 - Type 2 diabetes mellitus without complications Code(s): E11.9 - Type 2 diabetes mellitus without complications Status: Acute Assessment and Plan: A1c 6.6 12/2020 Hold oral antihyperglycemics SSI, accuchecks Monitor Additional Plan the patient was placed in observation status DVT prophylaxis with subcu Lovenox Subjective Date/time seen: 03/11/21 13:37 Interval history: Pt seen and evaluated; denies any N/V/D constipation or abdominal pain, no acute events overnight Review of Systems Review of Systems: All systems reviewed & are unremarkable except as noted in HPI and below Exam Const: General: no acute distress, alert and awake Orientation/consciousness: patient oriented x3 HENMT: Head: normocephalic and atraumatic Ears: hearing grossly normal bilaterally and external ears normal Face and sinus: face symmetric Mouth: Yes Normal oral and palatal mucosa present Eyes: Pupils: Equal, round and reactive pupils present EOM: EOMs intact bilaterally Neck: Neck: full ROM, trachea midline and no JVD Thyroid: thyroid normal Chest: Chest palpation & inspection: normal inspection of the chest Resp: Effort & Inspection: normal respiratory effort Auscultation: clear to auscultation bilaterally Cardio: Jugular venous distension: no JVD Rate: regular rate Rhythm: regular rhythm Heart sounds: S1 normal heart sound present and S2 normal heart sound present GI: Inspection: normal to inspection Auscultation: normal bowel sounds : General: Yes no CVA tenderness Urinary Catheter: Urinary Catheter: patent and draining and urine clear Back/Spine/Pelvis: Back: no CVA tenderness Skin: General skin exam: normal color Rashes: no rashes Neuro: General: patient oriented x3 and CN's II-XI intact bilaterally Cranial nerves: Yes Equal, round and reactive pupils present Speech: normal speech Psych: Appearance: grossly normal Affect: normal affect Judgement: Good judgement present (Psych) Objective Data Vital Signs Vital Signs: Vital Signs - 24 hr 03/10/21 14:00 03/10/21 14:57 03/10/21 21:52 Temperature 36.8 C Pulse Rate 66 71 Respiratory Rate 14 Blood Pressure 149/62 H Pulse Oximetry 98 96 94 03/10/21 22:00 03/10/21 23:21 03/11/21 06:00 Temperature 36.4 C L 36.7 C Pulse Rate 60 79 51 L Respiratory Rate 16 16 Blood Pressure 140/61 140/67 Pulse Oximetry 97 93 98 Intake/Output Intake/Outpu
[2021-03-11 15:25] VITALS: BP 167/72; PULSE 66; RESP 14; TEMP 36.8; O2SAT 99
[2021-03-11] MEDS: SIMVASTATIN 20 MG TABLET PO (17:31)
[2021-03-11] MEDS: FINASTERIDE 5 MG TABLET PO (17:32)
[2021-03-11] MEDS: ENOXAPARIN 40 MG/0.4 ML SYRINGE SUB-Q (17:32)
[2021-03-11 18:18] LABS: Glucose Point of Care 131 mg/dl (65-105)
[2021-03-11 22:00] VITALS: BP 153/61; PULSE 61; RESP 20; TEMP 36.4; O2SAT 98
[2021-03-11 22:25] LABS: Glucose Point of Care 138 mg/dl (65-105)
[2021-03-11 23:38] VITALS: PULSE 77; O2SAT 94
[2021-03-12 06:00] VITALS: BP 131/69; PULSE 61; RESP 18; TEMP 36.5; O2SAT 98
[2021-03-12 08:37] LABS: Glucose Point of Care 162 mg/dl (65-105)
[2021-03-12] MEDS: polyethylene glycoL 3350 17 GM POWD.PACK PO (08:41)
[2021-03-12] MEDS: ASPIRIN 81 MG ENTERIC TABLET PO (08:41)
[2021-03-12] MEDS: lisinopriL 10 MG TABLET PO (08:41)
[2021-03-12] MEDS: DOCUSATE SODIUM 100 MG CAPSULE PO (08:41)
[2021-03-12 12:25] LABS: Glucose Point of Care 185 mg/dl (65-105)
[2021-03-12 14:00] VITALS: BP 154/78; PULSE 65; RESP 20; TEMP 36.2; O2SAT 100
--- NOTE | 2021-03-12 15:15 | PM.DS ---
DS: Admitting Diagnosis Admitting Diagnosis urinary retention, constipation DS: Discharge Diagnosis Discharge Diagnosis (1) Retention of urine: Code(s): R33.9 - Retention of urine, unspecified Status: Acute Assessment and Plan: CT showed marked distention of the urinary bladder. May have been related to fecal impaction vs failure of finasteride vs use of Toviaz, an anticholinergic medication. seen in consultation by Urology Hollingsworth catheter initiated; 1400 cc return upon exertion continued on finasteride and tamsulosin was initiated Toviaz discontinued Hollingsworth catheter discontinued. voiding trial completed and he was voiding without difficulty follow-up with urology in 2 weeks (2) Fecal impaction: Code(s): K56.41 - Fecal impaction Status: Acute Assessment and Plan: KUB on presentation showed a fecal impaction. given magnesium citrate and fleets enema subsequently had multiple bowel movements repeat KUB with expected volume of colonic stool without persistence of fecal impaction discussed need to begin bowel regimen with MiraLax daily and Colace b.i.d. may also have been related to anticholinergic medication, Toviaz, which was discontinued (3) Abnormal urinalysis: Code(s): R82.90 - Unspecified abnormal findings in urine Status: Acute Assessment and Plan: UA on presentation was abnormal. He was asymptomatic. Received a dose of IV Levaquin. Urine culture ultimately with no growth, antibiotics discontinued. (4) Chronic kidney disease, stage 3 (moderate): Qualifiers: Chronic kidney disease stage 3 subtype: stage 3b (GFR 30-44) Qualified Code(s): N18.32 - Chronic kidney disease, stage 3b Code(s): N18.3 - Chronic kidney disease, stage 3 (moderate) Status: Acute Assessment and Plan: Creatinine remained consistent with his baseline throughout admission. 1.4 at time of discharge. 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 Blood sugars reviewed and were generally well controlled with sliding scale insulin. Continue home Januvia. DS: Summary Hospital Course Hospital Course: Date of admission: 03/08/2021 date of discharge: 03/12/2021 Rolf Webster is an 85-year-old male with a history of BPH, hypertension, hyperlipidemia, ERNIE, and type 2 diabetes mellitus who presented to the emergency department on 03/08/2021 with complaints of abdominal pain ongoing for 3 days that he described as cramping. He felt that he was constipated and had not had a bowel movement in 3 days. Upon presentation to the emergency department, his BP was elevated at 180 3/98 with additional vital signs stable, H&H slightly decreased, BUN creatinine slightly elevated with additional electrolytes stable, abdominal x-ray fecal impaction, and CT abdomen/ pelvis showed marked distention of the urinary bladder with large volume of stool in the rectum. He was admitted to the hospitalist service for further evaluation and management and was seen in consultation by Urology. Please see above for further details. Fecal infection resolved and he will continue with bowel regimen. Urinary retention also resolved and he was voiding independently. He will follow-up with urology as an outpatient. Given his overall improvement, he was determined to no longer require inpatient care was felt to be stable for discharge. We discussed worrisome signs and symptoms for which to return and he was educated on his medications. He was discharged in hemodynamically stable condition on 03/12/2021. Status at Discharge Functional status at
== END 2021-03-12 16:20 | disposition home or self-care (01) | DRG 390 ==
LOC: ANHED 03-09 00:54 → ANH3MEDSUR 03-09 01:16
PROVIDERS: Nurse Practitioner Adult Health; Physician Assistant; Admitting Provider Internal Medicine; Emergency Provider Emergency Medicine; PCP Family Medicine; Visit Provider Physician Assistant
DX: K56.41 Fecal impaction (principal); R33.9 Retention of urine, unspecified; E78.5 Hyperlipidemia, unspecified; D64.9 Anemia, unspecified; E11.9 Type 2 diabetes mellitus without complications; N40.0 Benign prostatic hyperplasia without lower urinary tract symptoms; I12.9 Hypertensive chronic kidney disease with stage 1 through stage 4 chronic kidney disease, or unspecified chronic kidney disease; E11.22 Type 2 diabetes mellitus with diabetic chronic kidney disease; N18.32 Chronic kidney disease, stage 3b
CPT/HCPCS: 36415; 51702; 74018; 74176; 80048; 80053; 81001; 82948; 85025; 85027; 87086; 94660; 96361; 96365; 96366; 96372; 97161; 97165; 99285; A9270; G0378; J1650; J1956; J7030

== ENCOUNTER 2021-09-18 13:14 | Emergency (ER) | payer MEDICARE, OTHER, SELFPAY ==
--- NOTE | ~2021-09-18 | XR_ITS ---
XR lumbar spine 2-3V DATE: 09/18/2021 15:37 INDICATION: Low back pain radiating to left leg. Injury 4 days ago. TECHNIQUE: AP, lateral, coned lateral lumbosacral views COMPARISON: None FINDINGS: The lumbar vertebrae are normally aligned, without evidence of fracture or bone destruction . Included lower thoracic and lumbar pedicles are intact. There is severe degenerative disc disease with bridging osteophytes at L4-5 and L5-S1. There is moder ate degenerative disc disease throughout the remainder of the lumbar spine. The sacroiliac joints are intact. Tortuous calcified abdominal aorta without apparent aneurysm. IMPRESSION: Multilevel degenerative disc disease, most severe at L4-5 and L5-S1 No fracture Reviewed, dictated and finalized at location A. S SHOP SUPERVISOR
--- NOTE | ~2021-09-18 | XR_ITS ---
XR hip BI 2V w AP pelvis DATE: 09/18/2021 15:37 INDICATION: Increasing pain and left sacroiliac joint following injury 4 days ago TECHNIQUE: AP pelvis. AP and lateral views of each hip. COMPARISON: None FINDINGS: There is moderately prominent degenerative disease at L3-4 and severe degenerative disc dis ease at L4-5 and L5-S1. The pubic symphysis and sacral iliac joints are intact. No pelvic fracture or bone destruction is светлана dent. No fracture or dislocation, avascular necrosis or bone destruction of either hip is evident. Hip join t spaces are symmetric and relatively preserved. IMPRESSION: Moderately severe degenerative disc disease at L3-4 and severe degenerative disc disease at L4-5 and L5-S1 No significant radiographic abnormality of the pelvis or hips Reviewed, dictated and finalized at location A. FABRICATOR IMPRESSION: Moderately severe degenerative disc disease at L3-4 and severe dege nerative disc disease at L4-5 and L5-S1 No significant radiographic abnormality of the pelvis or hips
[2021-09-18 13:17] VITALS: BP 143/61; PULSE 65; RESP 16; TEMP 36.9; O2SAT 99
[2021-09-18 13:28] VITALS: BP 143/61; PULSE 65; RESP 20; TEMP 36.9; O2SAT 99
--- NOTE | 2021-09-18 15:21 | ED.GENADULT ---
HPI - General Adult General Chief complaint: Back Pain/Injury Stated complaint: back pain Time Seen by Provider: 09/18/21 13:52 Source: patient Mode of arrival: ambulatory Limitations: no limitations History of Present Illness HPI narrative: Patient presents for evaluation of low back pain for the last 3 days. He indicates he was walking in his kitchen when he slipped. He did not actually fall to the ground. He caught himself on the counter. He felt a sharp pain in his low back. Pain is persisted since that time. Pain is constant, 7 out of 10 in severity, described as sharp and shooting . No radicular component. No saddle anesthesia, bladder/bowel incontinence. No paresthesias whatsoever. No hx of back problems historically. No additional complaints or concerns. His grandson lives with him in his single level home. He uses a cane from time to time at baseline. He has not change in his ambulatory status. He attempted to go in to see his primary provider for his pain. There were not any openings so he was advised to go to the ER for further evaluation. Related Data Home Medications Medication Instructions Recorded Confirmed albuterol sulfate 90 mcg/actuation 1 puff INHALATION Q4H PRN 07/12/19 07/24/21 aerosol inhaler aspirin 81 mg PO DAILY 03/09/21 07/24/21 Allergies Allergy/AdvReac Type Severity Reaction Status Date / Time amoxicillin Allergy Unknown Rash Verified 09/18/21 13:31 Penicillins Allergy Unknown Rash Verified 09/18/21 13:31 Sulfa (Sulfonamide Allergy Unknown Rash Verified 09/18/21 13:31 Antibiotics) sulfanilamide Allergy Unknown Rash Verified 09/18/21 13:31 sulfur dioxide Allergy Unknown Rash Verified 09/18/21 13:31 tetracycline Allergy Unknown Rash Verified 09/18/21 13:31 Review of Systems Review of Systems: CONSTITUTIONAL: Denies fever, chills, or sweats. EYES: Denies visual changes, redness, or discharge. ENT: Denies rhinorrhea, congestion, sore throat, or otalgia. CARDIOVASCULAR: Denies chest pain, palpitations, or edema. RESPIRATORY: Denies cough or dyspnea. GASTROINTESTINAL: Denies abdominal pain, nausea, vomiting, or diarrhea. GENITOURINARY: Denies dysuria or hematuria. SKIN: Denies rash or itching. MUSCULOSKELETAL: Reports low back pain. Denies joint pain, or myalgia. NEUROLOGIC: Denies headache, numbness, dizziness, or weakness. PSYCHIATRIC: Denies anxiety or depression. 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 Primary insomnia Primary osteoarthritis of both knees Tinea corporis Type 2 diabetes mellitus without complications Surgical History Surgical History History of appendectomy S/P arthroscopic surgery of left knee Family History Family History Sibling Hypertension Cerebrovascular accident Family history of diabetes mellitus in first degree relative Family history of coronary artery disease Family history of malignant neoplasm of breast in first degree relative Diabetes mellitus Father Family history of coronary artery disease Social History Social History Smoking packs per day: 2 Smoking cigarettes per day: 40.0 Years smoked: 40 Smoking pack-years: 80.00 Smoking status: Former smoker Tobacco type: cigarettes and cigars Second hand tobacco smoke exposure: No Alcohol intake: never Substance use: never Living arrangements: with family Gender identity (if verbalized by the patient): Male Spiritual care concerns: No Course Course Emergency Course: This is an 85-year-old male that presented with complaints of low back pain following a slip a
== END 2021-09-18 17:36 | disposition home or self-care (01) ==
PROVIDERS: Emergency Provider Nurse Practitioner; PCP Family Medicine
DX: S39.012A Strain of muscle, fascia and tendon of lower back, initial encounter (principal); M51.36 Other intervertebral disc degeneration, lumbar region; E11.9 Type 2 diabetes mellitus without complications; N40.0 Benign prostatic hyperplasia without lower urinary tract symptoms; E78.2 Mixed hyperlipidemia; M10.9 Gout, unspecified; G47.33 Obstructive sleep apnea (adult) (pediatric); G47.00 Insomnia, unspecified; M17.0 Bilateral primary osteoarthritis of knee; Z86.2 Personal history of diseases of the blood and blood-forming organs and certain disorders involving the immune mechanism; Z79.84 Long term (current) use of oral hypoglycemic drugs; Z79.82 Long term (current) use of aspirin; Z87.891 Personal history of nicotine dependence; W18.40XA Slipping, tripping and stumbling without falling, unspecified, initial encounter
CPT/HCPCS: 72100; 73521; 99284

== ENCOUNTER 2021-11-27 09:33 | Outpatient (CLI) | payer MEDICARE, OTHER, SELFPAY ==
[2021-11-27 10:20] LABS: Albumin Level 3.8 g/dL (3.5-5.1); Anion Gap 7 mmol/L (8-16); Blood Urea Nitrogen 26 mg/dL (9-20); Calcium 9.2 mg/dL (8.4-10.2); Carbon Dioxide 23 mmol/L (22-30); Chloride 108 mmol/L (98-107); Estimated Glomerular Filt Rate 48; Glucose 169 mg/dL (65-110); Phosphorus 3.9 mg/dL (2.5-4.5); Potassium 4.4 mmol/L (3.4-5.0); Sodium 138 mmol/L (137-145)
[2021-11-27 10:28] LABS: Creatinine Urine 73.4 mg/dL
[2021-11-27 10:29] LABS: Parathyroid Intact 31.8 pg/mL (7.5-53.5)
[2021-11-27 10:32] LABS: MALB Creatinine Ratio 9.8 mg/g (0-30); Microalbumin Urine Random 7.2 mg/L (0-16.7)
[2021-11-27 10:43] LABS: Vitamin D 25 Hydroxy 55.2 ng/mL
[2021-11-27 11:35] LABS: Total Protein Urine Random 9 mg/dL; Ur Ttl Prot Creatinine Ratio 0.12 mg/mg (0-0.20)
== END 2021-11-27 09:34 | disposition home or self-care (01) ==
PROVIDERS: PCP Family Medicine; Visit Provider Internal Medicine Nephrology
DX: I12.9 Hypertensive chronic kidney disease with stage 1 through stage 4 chronic kidney disease, or unspecified chronic kidney disease (principal); N18.31 Chronic kidney disease, stage 3a; E11.29 Type 2 diabetes mellitus with other diabetic kidney complication; E55.9 Vitamin D deficiency, unspecified
CPT/HCPCS: 36415; 80069; 82043; 82306; 82570; 83970; 84156

== ENCOUNTER 2022-05-15 09:17 | Emergency (ER) | payer MEDICARE, OTHER, SELFPAY ==
[2022-05-15 09:40] VITALS: BP 153/67; PULSE 61; RESP 16; TEMP 36.9; O2SAT 100
--- NOTE | 2022-05-15 10:21 | ED.UPPEXIN ---
HPI - Extremity Injury (Upper) General Chief Complaint: Extremity Injury, Upper Stated Complaint: lt arm injury Time Seen by Provider: 05/15/22 09:55 Source: patient, RN notes reviewed and old records reviewed Mode of arrival: ambulatory Limitations: no limitations History of Present Illness HPI narrative: 86 year old male presents to [facility] care accompanied by daughter with complaints of having a dream and rolled out of bed and hit his arm on the night stand. Patient reports that he didn't hit his head or have any other injury. Patient has noted skin tears to the left dorsal arm from his injury. Skin tear to most proximal wound is 2cm by 0.5 cm with outer layer intact to cover wound bed, bleeding is controlled.Most distal wound is 7cm X3cm with 75% of wound bed covered by top layer of tissue, bleeding also controlled. Wounds cleansed with antibacterial soap and rinsed and covered by Telfa gauze and Coban to secure in place with review of wound care with daughter and patient and for follow up with PCP. MD complaint: injury to: left and forearm Onset (ago): hour(s) (this morning around 0700) Handedness: right Place: home Treatments prior to arrival: bandage Related Data Allergies Allergy/AdvReac Type Severity Reaction Status Date / Time amoxicillin Allergy Unknown Rash Verified 05/15/22 10:03 Penicillins Allergy Unknown Rash Verified 05/15/22 10:03 Sulfa (Sulfonamide Allergy Unknown Rash Verified 05/15/22 10:03 Antibiotics) sulfanilamide Allergy Unknown Rash Verified 05/15/22 10:03 sulfur dioxide Allergy Unknown Rash Verified 05/15/22 10:03 tetracycline Allergy Unknown Rash Verified 05/15/22 10:03 Review of Systems Review of Systems: CONSTITUTIONAL: Denies fever, chills, or sweats. CARDIOVASCULAR: Denies chest pain, palpitations, or edema. RESPIRATORY: Denies cough or dyspnea. SKIN: Denies rash or itching. Positive for skin tears to left forearm from hitting on night stand MUSCULOSKELETAL: Reports no inability to move left arm and wrist with full ROM noted NEUROLOGIC: Denies numbness, or weakness. 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 Osteoarthritis of right knee Primary insomnia Primary osteoarthritis of both knees Tinea corporis Type 2 diabetes mellitus without complications Surgical History Surgical History History of appendectomy S/P arthroscopic surgery of left knee Family History Family History Sibling Hypertension Cerebrovascular accident Family history of diabetes mellitus in first degree relative Family history of coronary artery disease Family history of malignant neoplasm of breast in first degree relative Diabetes mellitus Father Family history of coronary artery disease Social History Social History Smoking packs per day: 2 Smoking cigarettes per day: 40.0 Years smoked: 40 Smoking pack-years: 80.00 Smoking status: Former smoker Tobacco type: cigarettes and cigars Second hand tobacco smoke exposure: No Smoking end date: 08/11/92 Alcohol intake: never Substance use: never Gender identity (if verbalized by the patient): Male Spiritual care concerns: No Comments At time of signature, agree with nursing past medical, surgical, social and family history. There is no relevant family history pertinent to the presenting complaint Exam Narrative: GENERAL: Well-appearing, well-nourished, and in no acute distress. HEAD: Normocephalic, atraumatic. EYES: PERRLA, conjunct
[2022-05-15] MEDS: TETANUS,DIPHTHERIA,AC PERTUSSIS ADULT (0.5 ML) BOOSTRIX IM (10:47)
== END 2022-05-15 10:50 | disposition home or self-care (01) ==
PROVIDERS: Emergency Provider Registered Nurse; PCP Family Medicine
DX: S51.812A Laceration without foreign body of left forearm, initial encounter (principal); W06.XXXA Fall from bed, initial encounter; Z23 Encounter for immunization; Z87.891 Personal history of nicotine dependence; I10 Essential (primary) hypertension; E78.2 Mixed hyperlipidemia; G47.33 Obstructive sleep apnea (adult) (pediatric); E11.9 Type 2 diabetes mellitus without complications; M17.0 Bilateral primary osteoarthritis of knee; M47.816 Spondylosis without myelopathy or radiculopathy, lumbar region
CPT/HCPCS: 90471; 90715; 99213; G0463

== ENCOUNTER 2022-06-11 14:12 | Outpatient (CLI) | payer MEDICARE, OTHER, SELFPAY ==
[2022-06-11 14:51] LABS: Creatinine Urine 145.4 mg/dL
[2022-06-11 14:55] LABS: Potassium 4.1 mmol/L (3.4-5.0)
[2022-06-11 14:59] LABS: Albumin Level 4.1 g/dL (3.5-5.1); Anion Gap 12 mmol/L (8-16); Blood Urea Nitrogen 28 mg/dL (9-20); Calcium 9.1 mg/dL (8.4-10.2); Carbon Dioxide 25 mmol/L (22-30); Chloride 105 mmol/L (98-107); Estimated Glomerular Filt Rate 44; Glucose 82 mg/dL (65-110); Phosphorus 3.1 mg/dL (2.5-4.5); Sodium 142 mmol/L (137-145)
[2022-06-11 16:21] LABS: Total Protein Urine Random < 5 mg/dL; Ur Ttl Prot Creatinine Ratio < 0.03 mg/mg (0-0.20)
== END 2022-06-11 14:13 | disposition home or self-care (01) ==
PROVIDERS: PCP Family Medicine; Visit Provider Internal Medicine Nephrology
DX: E11.29 Type 2 diabetes mellitus with other diabetic kidney complication (principal); I12.9 Hypertensive chronic kidney disease with stage 1 through stage 4 chronic kidney disease, or unspecified chronic kidney disease; N18.31 Chronic kidney disease, stage 3a
CPT/HCPCS: 36415; 80069; 82570; 84156

== ENCOUNTER 2022-09-12 09:24 | Outpatient (CLI) | payer MEDICARE, OTHER, SELFPAY ==
--- NOTE | 2022-09-12 11:00 | NEURO_ITS ---
Impression: Patient reports a history of numbness in digits I-III of the right hand. # Moderate right Carpal Tunnel Syndrome. # Mild left Carpal Tunnel Syndrome. # Normal needle/EMG exam. # Clinical correlation recommended. Motor Nerve Conduction Upper Extremities Median Nerve Conduction Velocity (m/sec) Terminal Latency (msec) Response Voltage(mV) Elbow-Wrist Wrist Elbow Wrist Right 50 7.7 4 4 Left 50 3.9 5 5 Ulnar Nerve Conduction Velocity (m/sec) Terminal Latency (msec) Response Voltage(mV) Above Elbow Below Elbow Wrist Above Elbow Below Elbow Wrist Right 54 50 3.0 5 5 6 Left 51 51 3.0 4 4 5 F-Wave Latency Median (ms) Ulnar (ms) Right 32.9 30.4 Left 31.8 31.4 Sensory Nerve Conduction Upper Extremities Median Nerve Stimulation Terminal Latency (msec) Wrist/Digit Response Voltage (uV) Wrist Right 6.9/7.8 12/18 Left 4.4/4.6 42/29 Ulnar Nerve Stimulation Terminal Latency (msec) Wrist/Digit Response Voltage (uV) Wrist Right 3.3 27 Left 3.4 21 Radial Nerve Terminal Latency (msec) Response Voltage(mV) Right 2.5 16 Left 2.1 23 Left Right Muscles Examined Fibrillation Fasciculation Scarcity Voltage Duration Left Right Left Right Left Right Left Right Left Right Deltoid Biceps X X Brachioradialis Triceps X X Pronator Teres X X Ext Indicis X X Ext Digitorum X X Abd Poll Brev X X 1st Dorsal Interosseus Paraspinals MTDD
== END 2022-09-12 09:25 | disposition home or self-care (01) ==
LOC: ANHNEURO 09:24
PROVIDERS: PCP Family Medicine; Visit Provider Family Medicine
DX: R20.0 Anesthesia of skin (principal); G56.03 Carpal tunnel syndrome, bilateral upper limbs
CPT/HCPCS: 95886; 95911

== ENCOUNTER 2022-10-29 08:54 | Outpatient (CLI) | payer MEDICARE, OTHER, SELFPAY ==
[2022-10-29 09:38] LABS: Hematocrit 37.1 % (42.0-52.0); Hemoglobin 12.4 g/dL (14.0-18.0); Mean Corpuscular HGB Conc 33.4 g/dl (32-36); Mean Corpuscular Hemoglobin 29.5 pg (26-34); Mean Corpuscular Volume 88.1 fl (80-100); Mean Platelet Volume 9.4 fl (7.4-10.4); Platelet Count Result 156 k/mm3 (150-375); Red Blood Count 4.21 M/mm3 (4.6-6.20); Red Cell Distribution Width 13.2 % (11.5-14.5); White Blood Count 7.4 K/mm3 (4.5-10.0)
[2022-10-29 09:45] LABS: Anion Gap 6 mmol/L (8-16); Blood Urea Nitrogen 31 mg/dL (9-20); Calcium 9.3 mg/dL (8.4-10.2); Carbon Dioxide 25 mmol/L (22-30); Chloride 108 mmol/L (98-107); Estimated Glomerular Filt Rate 48; Glucose 146 mg/dL (65-110); Potassium 4.7 mmol/L (3.4-5.0); Sodium 139 mmol/L (137-145)
[2022-10-29 10:15] LABS: Prostate Specific Antigen 0.2 ng/mL (< OR = 4.0)
[2022-10-29 10:31] LABS: Hemoglobin A1C 6.8 % (<5.7)
[2022-10-29 11:33] LABS: Microalbumin Urine Random 6.9 mg/L (0-16.7)
[2022-10-29 11:38] LABS: Creatinine Urine 130.4 mg/dL; MALB Creatinine Ratio 5.3 mg/g (0-30)
== END 2022-10-29 08:55 | disposition home or self-care (01) ==
LOC: ANHLAB 08:56
PROVIDERS: PCP Family Medicine; Visit Provider Family Medicine
DX: E11.9 Type 2 diabetes mellitus without complications (principal); N40.0 Benign prostatic hyperplasia without lower urinary tract symptoms; Z12.5 Encounter for screening for malignant neoplasm of prostate; I10 Essential (primary) hypertension; D64.9 Anemia, unspecified
CPT/HCPCS: 36415; 80048; 82043; 83036; 84153; 85027; G0103

== ENCOUNTER 2022-12-16 15:17 | Outpatient (CLI) | payer MEDICARE, OTHER, SELFPAY ==
[2022-12-16 16:26] LABS: Anion Gap 10 mmol/L (8-16); Blood Urea Nitrogen 25 mg/dL (9-20); Calcium 9.7 mg/dL (8.4-10.2); Carbon Dioxide 22 mmol/L (22-30); Chloride 106 mmol/L (98-107); Estimated Glomerular Filt Rate 44; Glucose 109 mg/dL (65-110); Phosphorus 3.8 mg/dL (2.5-4.5); Potassium 4.3 mmol/L (3.4-5.0); Sodium 138 mmol/L (137-145)
[2022-12-16 17:11] LABS: Vitamin D 25 Hydroxy 66.5 ng/mL
== END 2022-12-16 15:18 | disposition home or self-care (01) ==
LOC: ANHLAB 15:19
PROVIDERS: PCP Family Medicine; Visit Provider Internal Medicine Nephrology
DX: I12.9 Hypertensive chronic kidney disease with stage 1 through stage 4 chronic kidney disease, or unspecified chronic kidney disease (principal); N18.32 Chronic kidney disease, stage 3b; E11.22 Type 2 diabetes mellitus with diabetic chronic kidney disease; N25.81 Secondary hyperparathyroidism of renal origin; E55.9 Vitamin D deficiency, unspecified
CPT/HCPCS: 36415; 80069; 82306; 83970

== ENCOUNTER 2023-06-17 10:01 | Outpatient (CLI) | payer MEDICARE, OTHER, SELFPAY ==
[2023-06-17 11:32] LABS: Albumin Level 3.8 g/dL (3.5-5.1); Anion Gap 6 mmol/L (8-16); Blood Urea Nitrogen 40 mg/dL (9-20); Calcium 9.6 mg/dL (8.4-10.2); Carbon Dioxide 25 mmol/L (22-30); Chloride 105 mmol/L (98-107); Estimated Glomerular Filt Rate 38; Glucose 153 mg/dL (65-110); Phosphorus 3.6 mg/dL (2.5-4.5); Potassium 4.5 mmol/L (3.4-5.0); Sodium 136 mmol/L (137-145)
[2023-06-17 11:40] LABS: Creatinine Urine 57.1 mg/dL; Total Protein Urine Random 6 mg/dL; Ur Ttl Prot Creatinine Ratio 0.11 mg/mg (0-0.20)
== END 2023-06-17 10:02 | disposition home or self-care (01) ==
PROVIDERS: PCP Family Medicine; Visit Provider Internal Medicine Nephrology
DX: E11.22 Type 2 diabetes mellitus with diabetic chronic kidney disease (principal); I12.9 Hypertensive chronic kidney disease with stage 1 through stage 4 chronic kidney disease, or unspecified chronic kidney disease; N18.32 Chronic kidney disease, stage 3b
CPT/HCPCS: 36415; 80069; 82570; 84156

== ENCOUNTER 2023-12-16 08:35 | Outpatient (CLI) | payer MEDICARE, OTHER, SELFPAY ==
--- NOTE | ~2023-12-16 | XR_ITS ---
EXAMINATION: XR lumbar spine 2-3V DATE: 12/16/2023 08:55 INDICATION: Low back pain, unspecified. TECHNIQUE: 3 views of lumbar spine were obtained. COMPARISON: Lumbar spine radiograph 01/16/2022 FINDINGS: There is 4 degrees levocurvature of thoracolumbar spine. There is mild chronic anterior wed ging of T12 vertebral body. There is mildly decreased disc height at L1-L2 and L2-L3 and severely dec reased disc height at L4-L5 and L5-S1. There is multilevel severe facet joint osteoarthritis. IMPRESSION: 1. Severe lumbar spondylosis. Reviewed, dictated and finalized at location A.
== END 2023-12-16 08:36 ==
PROVIDERS: PCP Family Medicine; Visit Provider Physician Assistant Medical
DX: M43.06 Spondylolysis, lumbar region (principal)
CPT/HCPCS: 72100

== ENCOUNTER 2023-12-24 08:33 | Outpatient (CLI) | payer MEDICARE, OTHER, SELFPAY ==
[2023-12-24 09:19] LABS: Albumin Level 3.9 g/dL (3.5-5.1); Anion Gap 10 mmol/L (4-12); Blood Urea Nitrogen 31 mg/dL (9-20); Calcium 9.8 mg/dL (8.4-10.2); Carbon Dioxide 23 mmol/L (22-30); Chloride 108 mmol/L (98-107); Estimated Glomerular Filt Rate 41; Glucose 167 mg/dL (65-110); Phosphorus 3.5 mg/dL (2.5-4.5); Potassium 4.2 mmol/L (3.4-5.0); Sodium 141 mmol/L (137-145)
[2023-12-24 09:27] LABS: Parathyroid Intact 19.4 pg/mL (7.5-53.5)
[2023-12-24 09:34] LABS: Creatinine Urine 109.1 mg/dL
[2023-12-24 09:50] LABS: Vitamin D 25 Hydroxy 93.9 ng/mL
[2023-12-24 11:20] LABS: Total Protein Urine Random < 5 mg/dL; Ur Ttl Prot Creatinine Ratio < 0.05 mg/mg (0-0.20)
== END 2023-12-24 08:34 | disposition home or self-care (01) ==
PROVIDERS: PCP Family Medicine; Visit Provider Internal Medicine Nephrology
DX: I12.9 Hypertensive chronic kidney disease with stage 1 through stage 4 chronic kidney disease, or unspecified chronic kidney disease (principal); N18.32 Chronic kidney disease, stage 3b; E11.22 Type 2 diabetes mellitus with diabetic chronic kidney disease; N25.81 Secondary hyperparathyroidism of renal origin; E55.9 Vitamin D deficiency, unspecified
CPT/HCPCS: 36415; 80069; 82306; 82570; 83970; 84156

== ENCOUNTER 2024-03-15 13:13 | Outpatient (CLI) | payer MEDICARE, OTHER, SELFPAY ==
[2024-03-15 14:13] LABS: Hematocrit 37.3 % (42.0-52.0); Hemoglobin 12.1 g/dL (14.0-18.0); Mean Corpuscular HGB Conc 32.4 g/dl (32-36); Mean Corpuscular Volume 92.6 fl (80-100); Platelet Count Result 158 k/mm3 (150-375); Red Blood Count 4.03 M/mm3 (4.6-6.20); Red Cell Distribution Width 13.6 % (11.5-14.5); White Blood Count 8.3 K/mm3 (4.5-10.0)
[2024-03-15 14:48] LABS: Alanine Aminotransferase 15 U/L (6-50); Albumin Level 3.9 g/dL (3.5-5.1); Alkaline Phosphatase 55 U/L (38-126); Anion Gap 9 mmol/L (4-12); Aspartate Amino Transferase 18 U/L (17-59); Bilirubin,Total 0.6 mg/dL (0.2-1.3); Blood Urea Nitrogen 30 mg/dL (9-20); Calcium 9.7 mg/dL (8.4-10.2); Carbon Dioxide 24 mmol/L (22-30); Chloride 105 mmol/L (98-107); Estimated Glomerular Filt Rate 38; Glucose 198 mg/dL (65-110); Potassium 4.3 mmol/L (3.4-5.0); Sodium 138 mmol/L (137-145)
[2024-03-15 15:14] LABS: Iron 95 ug/dL (49-181)
[2024-03-15 15:19] LABS: Creatinine Urine 155.7 mg/dL
[2024-03-15 15:23] LABS: Percent Iron Saturation 36 % (20-50)
[2024-03-15 15:26] LABS: MALB Creatinine Ratio < 3.9 mg/g (0-30); Microalbumin Urine Random < 6.0 mg/L (0-16.7)
[2024-03-15 16:41] LABS: Hemoglobin A1C 7.4 % (<5.7)
== END 2024-03-15 13:14 | disposition home or self-care (01) ==
LOC: ANHLAB 13:18
PROVIDERS: PCP Family Medicine; Visit Provider Family Medicine
DX: E78.5 Hyperlipidemia, unspecified (principal); D64.9 Anemia, unspecified; E11.22 Type 2 diabetes mellitus with diabetic chronic kidney disease; I12.9 Hypertensive chronic kidney disease with stage 1 through stage 4 chronic kidney disease, or unspecified chronic kidney disease; N18.31 Chronic kidney disease, stage 3a
CPT/HCPCS: 36415; 80048; 80076; 82043; 82728; 83036; 83540; 83550; 84443; 85027

== ENCOUNTER 2024-07-15 08:52 | Outpatient (CLI) | payer MEDICARE, OTHER, SELFPAY ==
[2024-07-15 10:47] LABS: Albumin Level 3.7 g/dL (3.5-5.1); Anion Gap 4 mmol/L (4-12); Blood Urea Nitrogen 32 mg/dL (9-20); Calcium 9.8 mg/dL (8.4-10.2); Carbon Dioxide 27 mmol/L (22-30); Chloride 107 mmol/L (98-107); Estimated Glomerular Filt Rate 44; Glucose 176 mg/dL (65-110); Phosphorus 3.8 mg/dL (2.5-4.5); Potassium 4.5 mmol/L (3.4-5.0); Sodium 138 mmol/L (137-145)
[2024-07-15 10:59] LABS: Creatinine Urine 164.7 mg/dL
[2024-07-15 12:12] LABS: Total Protein Urine Random < 5 mg/dL
[2024-07-15 12:13] LABS: Ur Ttl Prot Creatinine Ratio < 0.03 mg/mg (0-0.20)
== END 2024-07-15 08:53 | disposition home or self-care (01) ==
PROVIDERS: PCP Family Medicine; Visit Provider Internal Medicine Nephrology
DX: E11.22 Type 2 diabetes mellitus with diabetic chronic kidney disease (principal); I12.9 Hypertensive chronic kidney disease with stage 1 through stage 4 chronic kidney disease, or unspecified chronic kidney disease; N18.32 Chronic kidney disease, stage 3b
CPT/HCPCS: 36415; 80069; 82570; 84156

== ENCOUNTER 2024-08-06 09:54 | Outpatient (CLI) | payer MEDICARE, OTHER, SELFPAY ==
[2024-08-06 10:25] LABS: Uric Acid 7.5 mg/dL (3.5-8.5)
== END 2024-08-06 09:55 | disposition home or self-care (01) ==
PROVIDERS: PCP Family Medicine; Visit Provider Family Medicine
DX: M10.9 Gout, unspecified (principal)
CPT/HCPCS: 36415; 84550

== ENCOUNTER 2024-09-23 16:16 | Emergency (ER) | payer MEDICARE, OTHER, SELFPAY ==
[2024-09-23] VITALS (15 sets, daily range): BP systolic 154–183; BP diastolic 62–79; PULSE 63; RESP 16; TEMP 36.3; O2SAT 97–100
--- NOTE | ~2024-09-23 | XR_ITS ---
EXAMINATION: XR chest 2V DATE: 09/23/2024 17:00 INDICATION: Chest pain. TECHNIQUE: Frontal and lateral views of the chest were obtained. 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 No pleural effusion or pneumothorax. The heart size is normal. There is an old h ealed fracture of left clavicle. IMPRESSION: 1. No acute cardiopulmonary disease. Reviewed, dictated and finalized at location A. IN HAND
--- OUTSIDE RECORDS SUMMARY | 2024-09-23 16:18 | XMS_ITS | Continuity of Care Document ---
Author Organization [facility] Address [address] [place] [address] Phone Care Team Providers Care Certified Orthotist Practice Manager Name Role Phone Danna Geiger Unavailable Unavailable Advance Directives Directive Yes / No Effective Date File Name No Information Encounters Encounter Description Practice Location Reason(s) For Visit Diagnoses Date Provider Providers Copied on Encounter [facility], [address], [place], [place], [id number], [place] tel:[phone] [facility] No Information [address] , [address], [place], [address], [place]. tel:[phone] Family History Family Member Type Diagnosis Age At Onset No Information Payers Payer name Insurance type Covered alliance party ID Authoriza tion(s) Medicare [facility] [id number] Social History Type Description Quantity Date Captured [...]
--- OUTSIDE RECORDS SUMMARY | 2024-09-23 16:18 | XMS_ITS | Clinical Summary ---
Author Organization [facility]in[facility] Address [address] [place] [id number] Phone Care Team Providers Care Print Production Manager Name Role Phone Gavino Erickson MD Primary Care Provider Allergies Active Allergy Reactions Criticality Noted Date Comments Amoxicillin 04/20/2019 Sulfa Antibiotics 04/20/2019 Tetracyclines & Related 04/20/2019 Medications Medication Sig Dispensed Refills Start Date End Date Status glimepiride (AMARYL) 2 MG tablet 1 tab/cap qday 0 04/01/2012 Active albuterol HFA (PROVENTIL HFA;VENTOLIN HFA) 108 (90 Base) MCG/ACT inhaler 2 puffs q 4 - 6hr PRN 03/29/2012 Active simvastatin (ZOCOR) 20 MG tablet 1 tab/cap qday 0 06/22/2014 Active amitriptyline (ELAVIL) 50 MG tablet 1 tab/cap qhs 03/29/2012 Active Febuxostat (ULORIC) 40 MG tablet 1 tab/cap qday 0 12/20/2015 Active aspirin 81 MG tablet 1 tab/cap qday 03/29/2012 Active TOVIAZ 4 MG tablet sustained-release 24 hour 09/06/2019 Active finasteride (PROSCAR) 5 MG tablet 10/08/2019 Active FREESTYLE LITE test strip USE TO CHECK 3 TIMES A DAY AND NEEDED 03/08/2020 Active lisinopril (PRINIVIL,ZESTRIL) 20 MG tablet 01/24/2020 Active JANUVIA 100 MG tablet 04/05/2020 Act cole docusate sodium (COLACE) 100 MG capsule 03/12/2021 Active tamsulosin (FLOMAX) 0.4 MG 24 hr capsule 04/10/2021 Acti ve lidocaine (LIDODERM) 5 % patch APPLY 1 PATCH TOPICALLY DAILY APPLY TO LOW BACK-ON 12 HR OFF 12 HR 09/18/2021 Active metFORMIN XR 500 MG 24 hr tablet 11/27/2021 Active mupirocin (BACTROBAN) 2 % ointment Apply topically 1 (one) time each day 05/15/2022 Active Active Problems Problem Noted Date Diagnosed Date Chronic kidney disease, stage 3 (moderate) 10/21 Type 2 diabetes mellitus with diabetic nephropat hy 10/22/2017 Hypertensive chronic kidney disease with stage 1 through stage 4 chronic kidney disease, or unspecified chronic kidney disease 10/22/2017 Other hyperlipidemia 06/21/2015 Overview (10/24/2018): Converted unresolved ICD9, potential mismatch. Chronic kidney disease, stage 2 (mild) 2 Essential (primary) hypertension 02/18/2012 Type 2 diabetes mellitus without complication Immunizations Name Administration Dates Next Due Influenza TIV (IM) 06/19/2016,06/22/2014 Pneumococcal Conjugate 13-Valent 06/19/2016 Sars-cov-2, Unspecified 06/21/2021,12/19/2020, Family History Medical History Relation Comments Kidney disease Neg Hx Kidney stone Neg Hx Social History Tobacco Use Types Packs/Day Years Used Date Smoking Tobacco: Never Smokeless Tobacco: Never Tobacco Cessation:Counseling Given: Not Answered Alcohol Use Standard Drinks/Week Comments No 0 (1 standard drink = 0.6 oz pur e alcohol) Sex and Gender Information Value Date Recorded Sex Assigned at Not on file Gender Identity Not on file Sexual Orientation Not on file Last Filed Vital Signs Vital Sign Reading Time Taken Comments Blood Pressure 132/76 06/19/2022 9:09 AM PROJECT PROGRAM MANAGER Pulse - - Temperature 35.8 C (96.5 F) 06/19/2022 9:09 AM PROJECT PROGRAM MANAGER Respiratory Rate 18 06/19/2022 9:09 AM PROJECT PROGRAM MANAGER Oxygen Saturation - - Inhaled Oxygen Concentration - - Weight 96.6 kg (213 lb) 06/19/2022 9:09 AM PROJECT PROGRAM MANAGER Height 172.7 cm (5' 8 ) 06/19/2022 9:09 AM PROJECT PROGRAM MANAGER Body Mass Index 32.39 06/19/2022 9:09 AM PROJECT PROGRAM MANAGER Plan of Treatment Health Maintenance Due Date Last Done Comments Diabetic Foot Exam 12/02/1945 Ophthalmology Exam 12/02/1945 Pneumococcal PPSV23/PCV13 65 + Years / High and Highest Risk (2 of 4 - PPSV23 or PCV20) 08/14/2016 06/19/2016 Influenza Vaccine (#1) 2024 06/19/2016, 2013 Care Teams Print Production Manager Relationship Specialty Start Date End Date Gavino Erickson MD [address] [place] [address] PCP - General Family Medicine 04/20/19
--- NOTE | 2024-09-23 16:21 | ECG_ITS ---
Test Date: 2024-09-23 16:43:27 Measurements Intervals [place] Rate: 54 P: 0 FL: 0 QRS: -16 QRSD: 94 T: 38 QT: 419 QTc: 400 Interpretive Statements SINUS BRADYCARDIA WITH MARKED FIRST DEGREE AV BLOCK LEFT VENTRICULAR HYPERTROPHY LOW QRS VOLTAGE IN PRECORDIAL LEADS BASELINE ARTIFACT- I, II, III, AVR, AVL, AVF, V2-V6 BORDERLINE ECG No previous ECG available for comparison Electronically Signed On 09-23-2024 19:03:43 SPECIAL EDUCATION CURRICULUM SPECIALIST by Eric Rowell D.O.
[2024-09-23 17:22] LABS: Influenza A QL RT-PCR Positive (Negative); Influenza B QL RT-PCR Negative (Negative); RSV RNA, RT-PCR Negative (Negative); SARS-CoV-2 RNA PCR Negative (Negative)
--- NOTE | 2024-09-23 17:37 | ED_ITS ---
HPI - General Adult General Chief complaint: Shortness of Breath/Dyspnea <Celi Kerr December, TESTING COORDINATOR - Last Filed: 09/23/24 17:40> Stated complaint: sob, body aches, dizzy x4d <Celi Kerr December, - Last Filed: 09/23/24 17:40> Time Seen by Provider: 09/23/24 17:37 <Celi Kerr December,N - Last Filed: 09/23/24 17:40> Focused HPI: Rolf Webster is an 88 y/o male who presents with complaints of chest pain/ chills/ dizzy / weak / productive cough for about 3 days GENERAL: well-nourished, and in no acute distress. HEAD: Normocephalic, atraumatic. CHEST: Clear to auscultation. ?No respiratory distress. HEART: Regular rate and rhythm.? NEURO: ?Alert and oriented x3. Patient screened in triage and initial orders placed.? ?Additional care and disposition to be based upon?diagnostic testing and treatment. <Celi Kerr December,N - Last Filed: 09/23/24 17:40> History of Present Illness HPI narrative: Agree with the HPI above. Patient has had phos is sick contacts with influenza exposure at home. Patient lives by himself and is able to ambulate and take care of himself but states that he has been feeling more weak lately. No falls or injury. No headache or vision changes. Feels chills but denies any fever. <Jigar Dukes MD - Last Filed: 09/24/24 00:03> Related Data Home medications: Home Medications ?Medication ?Instructions ?Recorded ?Confirmed ?Last Taken ?Type multivitamin 1 tablet PO DAILY 03/22/24 07/27/24 Unknown History <Celi Kerr December,N - Last Filed: 09/23/24 17:40> Allergies/adverse reactions: Allergies Allergy/AdvReac Type Severity Reaction Status Date / Time amoxicillin Allergy Unknown Rash Verified 09/23/24 16:20 Penicillins Allergy Unknown Rash Verified 09/23/24 16:20 Sulfa (Sulfonamide Allergy Unknown Rash Verified 09/23/24 16:20 Antibiotics) sulfanilamide Allergy Unknown Rash Verified 09/23/24 16:20 sulfur dioxide Allergy Unknown Rash Verified 09/23/24 16:20 tetracycline Allergy Unknown Rash Verified 09/23/24 16:20 <Celi Kerr December, TESTING COORDINATOR - Last Filed: 09/23/24 17:40> Review of Systems 2 Review of Systems: As reviewed above in HPI <Jigar Dukes MD - Last Filed: 09/24/24 00:03> [facility] Past Medical History Medical History: Medical History Hyperlipidemia Diarrhea Family history of skin cancer Actinic keratosis Skin cancer screening Benign mole Osteoarthritis of right knee Lumbar spondylosis Tinea corporis Urinary retention Constipation Anemia, unspecified BPH w/o urinary obs/LUTS Gout, unspecified Mixed hyperlipidemia ERNIE on CPAP Primary insomnia Primary osteoarthritis of both knees Type 2 diabetes mellitus without complications HTN (hypertension) <Celi Kerr December, TESTING COORDINATOR - Last Filed: 09/23/24 17:40> Surgical History Surgical History: Surgical History S/P arthroscopic surgery of left knee History of appendectomy <Celi Kerr December,N - Last Filed: 09/23/24 17:40> Family History Family History: Family History Sibling Hypertension Cerebrovascular accident Family history of diabetes mellitus in first degree relative Family history of coronary artery disease Family history of malignant neoplasm of breast in first degree relative Diabetes mellitus Father Family history of coronary artery disease Heart disease Mother Sibling Heart disease Sibling No problems noted. <Celi Kerr December,N - Last Filed: 09/23/24 17:40> Social History Social History: Social History Smoking packs per day: 2 Smoking cigarettes per day: 40.0 Years smoked: 40 Smoking pack-years: 80.00 Smoking status: Former smoker Tobacco type: cigarettes and cigars Second hand tobacco smoke exposure: No Smoking end date: 08/11/92 Alcohol intake: current Substance use: never Substance use type: does not use Do You Feel Safe in your Home?: Yes Lack of Transportation: No Lack of Food: Never True Current Housing: I Have Housing Concerned About Future Housing: No Difficulty Paying Gas/Electric Bills: No Difficulty Paying for Meds: No Currently Unemployed: No Education: High School Diploma/GED Difficulty w/ Childcare or Family Care: No Living arrangements: with family Occupation/Education: retired Additional occupation/education comments: [employer] Gender identity (if verbalized by the patient): Male Spiritual care concerns: No <Celi Huston APRN - Last Filed: 09/23/24 17:40> Exam 2 Narrative: GENERAL: [Well-appearing, well-nourished, and in no acute distress.] HEAD: [Normocephalic, atraumatic.] EYES: [PERRLA and EOMI.] ENT: Nares clear, no rhinorrhea or epistaxis. Mucous membranes moist. NECK: Supple. CHEST: [Clear to auscultation. No respiratory distress.] HEART: [Regular rate and rhythm]. No murmur heard. [Normal peripheral pulses.] ABDOMEN: [Soft, nondistended], [nontender], [No rigidity or guarding] EXTREMITIES: Normal range of motion. [No edema.] SKIN: Warm, dry, no rash. NEURO: [No focal deficits]. Alert and oriented [x3.] PSYCH: [Normal mood and affect.] <Jigar Dukes MD - Last Filed: 09/24/24 00:03> Course Vital Signs Vital signs: Vital Signs Temperature 36.3 C L 09/23/24 16:32 Pulse Rate 63 09/23/24 16:32 Respiratory Rate 16 09/23/24 16:32 Blood Pressure 154/64 H 09/23/24 16:32 Pulse Oximetry 98 09/23/24 16:32 Oxygen Delivery Room Air 09/23/24 16:32 Temperature 36.3 C L 09/23/24 16:32 Pulse Rate 63 09/23/24 16:32 Respiratory Rate 16 09/23/24 16:32 Blood Pressure 177/77 H 09/23/24 22:46 Pulse Oximetry 99 09/23/24 23:16 Oxygen Delivery Room Air 09/23/24 22:01 <Celi Huston APRN - Last Filed: 09/23/24 17:40> Vital Signs Temperature 36.3 C L 09/23/24 16:32 Pulse Rate 63 09/23/24 16:32 Respiratory Rate 16 09/23/24 16:32 Blood Pressure 154/64 H 09/23/24 16:32 Pulse Oximetry 98 09/23/24 16:32 Oxygen Delivery Room Air 09/23/24 16:32 Temperature 36.3 C L 09/23/24 16:32 Pulse Rate 63 09/23/24 16:32 Respiratory Rate 16 09/23/24 16:32 Blood Pressure 177/77 H 09/23/24 22:46 Pulse Oximetry 99 09/23/24 23:16 Oxygen Delivery Room Air 09/23/24 22:01 <Jigar Dukes MD - Last Filed: 09/24/24 00:03> Medical Decision Making MDM Narrative Medical decision making narrative: 88-year-old male with history of hypertension, hyperlipidemia and diabetes. He presents with cough, congestion, subjective chills but no fever, upper respiratory infection symptoms for last few days. Patient states he lives by himself as family with him at bedside and frequently gets visits. He is not any acute distress, has normal vital signs and stable hypertension. No tachycardia, fever, hypoxia or significant concerns on examination. He has clear breath sounds, normal rate and rhythm. No signs of trauma or injury. Patient is acting appropriately, feels like his symptoms are slowly improving. Has been eating and drinking and denies any diarrhea. Suspicion presently is for viral syndrome, likely influenza versus COVID. Electrolyte derangements or kidney disease progression verses less likely pneumonia. Given his age and risk factors a cardiac workup was also added on including a troponin, EKG and chest x-ray. CBC CMP and COVID swabs obtained and he was given a fluid bolus. His initial EKG is nonischemic. He is otherwise very well-appearing and I believe can be safely discharged home if he has unremarkable workup here in the ED. Family comfortable with this plan. No leukocytosis, anemia seems to be at his baseline, normal platelet count. Chemistry panel within normal limits, normal creatinine, normal glucose and LFTs. Negative troponin. Tested positive for influenza A but chest x-ray has no consolidations or pneumonia. EKG shows sinus bradycardia but no signs of acute ischemic event. Patient was evaluated after fluids and felt much improved. He is safe and stable for discharge home at this time, outside the window for Tamiflu initiation and we discussed [id number] and flu medication regimen and family is comfortable with his discharge <Jigar Dukes MD - Last Filed: 09/24/24 00:03> Medical Records Medical records reviewed: Yes I reviewed the external patient's medical records. <Jigar Dukes MD - Last Filed: 09/24/24 00:03> Vital Signs Vital Signs: Vital Signs Temperature 36.3 C L 09/23/24 16:32 Pulse Rate 63 09/23/24 16:32 Respiratory Rate 16 09/23/24 16:32 Blood Pressure 154/64 H 09/23/24 16:32 Pulse Oximetry 98 09/23/24 16:32 Oxygen Delivery Room Air 09/23/24 16:32 Temperature 36.3 C L 09/23/24 16:32 Pulse Rate 63 09/23/24 16:32 Respiratory Rate 16 09/23/24 16:32 Blood Pressure 177/77 H 09/23/24 22:46 Pulse Oximetry 99 09/23/24 23:16 Oxygen Delivery Room Air 09/23/24 22:01 <Celi Huston, TESTING COORDINATOR - Last Filed: 09/23/24 17:40> Vital Signs Temperature 36.3 C L 09/23/24 16:32 Pulse Rate 63 09/23/24 16:32 Respiratory Rate 16 09/23/24 16:32 Blood Pressure 154/64 H 09/23/24 16:32 Pulse Oximetry 98 09/23/24 16:32 Oxygen Delivery Room Air 09/23/24 16:32 Temperature 36.3 C L 09/23/24 16:32 Pulse Rate 63 09/23/24 16:32 Respiratory Rate 16 09/23/24 16:32 Blood Pressure 177/77 H 09/23/24 22:46 Pulse Oximetry 99 09/23/24 23:16 Oxygen Delivery Room Air 09/23/24 22:01 <Jigar Dukes MD - Last Filed: 09/24/24 00:03> Lab Data Lab results reviewed: Yes I reviewed the patient's lab results. <Jigar Dukes MD - Last Filed: 09/24/24 00:03> Result diagrams: 09/23/24 21:47 09/23/24 21:47 <Celi Huston, TESTING COORDINATOR - Last Filed: 09/23/24 17:40> Labs: Lab Results 09/23/24 09/23/24 Range/Units 16:42 21:47 WBC 7.9 (4.5-10.0) K/mm3 RBC 4.03 L (4.6-6.20) M/mm3 Hgb 11.8 L (14.0-18.0) g/dL Hct 35.4 L (42.0-52.0) % MCV 87.8 (80-100) fl MCH 29.3 (26-34) pg MCHC 33.3 (32-36) g/dl RDW 13.7 (11.5-14.5) % Plt Count 177 (150-375) k/mm3 MPV 9.1 (7.4-10.4) fl Immature Gran % (Auto) 0.3 (0-0.5) % Neut % (Auto) 53.8 (45.5-73.1) % Lymph % (Auto) 32.3 (18.3-44.2) % Hitchcock % (Auto) 9.5 H (2.6-8.5) % Eos % (Auto) 3.7 (0-4.4) % Baso % (Auto) 0.4 (0.2-1.2) % Lymph # (Auto) 2.55 (0.9-3.2) K/mm3 Hitchcock # (Auto) 0.8 H (0.1-0.6) K/mm3 Eos # (Auto) 0.3 (0-0.3) K/mm3 Baso # (Auto) 0.0 (0.0-0.1) K/mm3 Abs Immat Gran (auto) 0.02 (0.00-0.031) K/mm3 Absolute Neuts (auto) 4.3 (1.3-6.7) K/mm3 Absolute Nucleated RBC 0.000 (0.0-0.012) K/mm3 Nucleated RBC % 0.0 (0.0-0.2) % Sodium 138 (137-145) mmol/L Potassium 4.2 (3.4-5.0) mmol/L Chloride 106 (98-107) mmol/L Carbon Dioxide 22 (22-30) mmol/L Anion Gap 10 (4-12) mmol/L BUN 23 H (9-20) mg/dL Creatinine 1.25 (0.7-1.3) mg/dL Estim Creat Clear Calc 40 ml/min Estimated GFR 55 L (59 - ) Glucose 101 (65-110) mg/dL Calcium 9.5 (8.4-10.2) mg/dL Total Bilirubin 0.4 (0.2-1.3) mg/dL AST 26 (17-59) U/L ALT 20 (6-50) U/L Alkaline Phosphatase 66 (38-126) U/L Troponin I 0.013 (0.000-0.034) ng/mL Total Protein 7.0 (6.3-8.2) g/dL Albumin 3.7 (3.5-5.1) g/dL Influenza A (RT-PCR) Positive A (Negative) Influenza B (RT-PCR) Negative (Negative) RSV (RT-PCR) Negative (Negative) SARS-CoV-2 RNA (RT-PCR) Negative (Negative) <Celi Huston, TESTING COORDINATOR - Last Filed: 09/23/24 17:40> Lab Results 09/23/24 09/23/24 Range/Units 16:42 21:47 WBC 7.9 (4.5-10.0) K/mm3 RBC 4.03 L (4.6-6.20) M/mm3 Hgb 11.8 L (14.0-18.0) g/dL Hct 35.4 L (42.0-52.0) % MCV 87.8 (80-100) fl MCH 29.3 (26-34) pg MCHC 33.3 (32-36) g/dl RDW 13.7 (11.5-14.5) % Plt Count 177 (150-375) k/mm3 MPV 9.1 (7.4-10.4) fl Immature Gran % (Auto) 0.3 (0-0.5) % Neut % (Auto) 53.8 (45.5-73.1) % Lymph % (Auto) 32.3 (18.3-44.2) % Hitchcock % (Auto) 9.5 H (2.6-8.5) % Eos % (Auto) 3.7 (0-4.4) % Baso % (Auto) 0.4 (0.2-1.2) % Lymph # (Auto) 2.55 (0.9-3.2) K/mm3 Hitchcock # (Auto) 0.8 H (0.1-0.6) K/mm3 Eos # (Auto) 0.3 (0-0.3) K/mm3 Baso # (Auto) 0.0 (0.0-0.1) K/mm3 Abs Immat Gran (auto) 0.02 (0.00-0.031) K/mm3 Absolute Neuts (auto) 4.3 (1.3-6.7) K/mm3 Absolute Nucleated RBC 0.000 (0.0-0.012) K/mm3 Nucleated RBC % 0.0 (0.0-0.2) % Sodium 138 (137-145) mmol/L Potassium 4.2 (3.4-5.0) mmol/L Chloride 106 (98-107) mmol/L Carbon Dioxide 22 (22-30) mmol/L Anion Gap 10 (4-12) mmol/L BUN 23 H (9-20) mg/dL Creatinine 1.25 (0.7-1.3) mg/dL Estim Creat Clear Calc 40 ml/min Estimated GFR 55 L (59 - ) Glucose 101 (65-110) mg/dL Calcium 9.5 (8.4-10.2) mg/dL Total Bilirubin 0.4 (0.2-1.3) mg/dL AST 26 (17-59) U/L ALT 20 (6-50) U/L Alkaline Phosphatase 66 (38-126) U/L Troponin I 0.013 (0.000-0.034) ng/mL Total Protein 7.0 (6.3-8.2) g/dL Albumin 3.7 (3.5-5.1) g/dL Influenza A (RT-PCR) Positive A (Negative) Influenza B (RT-PCR) Negative (Negative) RSV (RT-PCR) Negative (Negative) SARS-CoV-2 RNA (RT-PCR) Negative (Negative) <Jigar Dukes MD - Last Filed: 09/24/24 00:03> Imaging Data Attestation: I personally reviewed and interpreted this imaging study as follows: < Jigar Dukes MD - Last Filed: 09/24/24 00:03> My impression: Impressions Chest X-Ray 09/23/24 17:01 IMPRESSION: 1. No acute cardiopulmonary disease. <Jigar Dukes MD - Last Filed: 09/24/24 00:03> ECG Data EKG #1: Attestation: I personally reviewed and interpreted this ECG as follows: < Jigar Dukes MD - Last Filed: 09/24/24 00:03> ECG completion date: 09/23/24 <Jigar Dukes MD - Last Filed: 09/24/24 00:03> ECG completion time: 16:43 <Jigar Dukes MD - Last Filed: 09/24/24 00:03> Prior ECG tracings: not available for review <Jigar Dukes MD - Last Filed: 09/24/24 00:03> Interpretation: Sinus bradycardia, [place] interval prolongation but no ST segment elevations, depressions or inversions. Regular axis, regular rhythm, no signs of acute ischemic event. QTC 400, QRS 94. Overall interpretation sinus bradycardia, no signs of acute occlusive event. <Jigar Dukes MD - Last Filed: 09/24/24 00:03> Discharge Plan Discharge Clinical Impression: Influenza A <Celi Huston TESTING COORDINATOR - Last Filed: 09/23/24 17:40> Patient Disposition: Home, Self-Care <Celi Huston TESTING COORDINATOR - Last Filed: 09/23/24 17:40> Condition: Stable <Celi Kerr December TESTING COORDINATOR - Last Filed: 09/23/24 17:40> Instructions: Antibiotic Form, Influenza (ED) <Celi Huston, TESTING COORDINATOR - Last Filed: 09/23/24 17:40> Additional Instructions: Continue taking your medications and any [id number] medications that match her symptoms for influenza. Follow-up with your regular doctor, if you have any new developing shortness of breath, chest pain or any other concerns return to the ER otherwise follow-up with regular doctors. <Celi Huston TESTING COORDINATOR - Last Filed: 09/23/24 17:40> Patient Language: Hong Konger <Celi Kerr December, TESTING COORDINATOR - Last Filed: 09/23/24 17:40> Prescriptions: No Action multivitamin Tablet 1 tablet PO DAILY polyethylene glycol 3350 [Miralax] 17 gram Powder In Packet 17 g PO QAM Qty: 30 0RF (DME) Dexcom G6 Transmitter Device See Rx Instructions .Route Qty: 1 0RF Rx Instructions: As directed (DME) Dexcom G6 Firewood Cutter Misc See Rx Instructions .Route Qty: 1 0RF Rx Instructions: As directed simvastatin 20 mg tablet See Rx Instructions .ROUTE .COMPLEX Qty: 90 1RF Dose Instruction: TAKE 1 TABLET EVERY EVENING Rx Instructions: TAKE 1 TABLET EVERY EVENING tamsulosin 0.4 mg capsule 0.4 mg PO DAILY Qty: 90 0RF albuterol sulfate 90 mcg/actuation HFA aerosol inhaler 1 inh inhalation Q4H PRN (Reason: shortness of breath or wheezing) Qty: 20.1 3RF Rx Instructions: generic please. 3mo supply finasteride 5 mg tablet See Rx Instructions .ROUTE .COMPLEX Qty: 90 3RF Dose Instruction: TAKE 1 TABLET EVERY EVENING Rx Instructions: TAKE 1 TABLET EVERY EVENING lisinopril 10 mg tablet 10 mg PO DAILY Qty: 90 2RF febuxostat 40 mg tablet See Rx Instructions .ROUTE .COMPLEX Qty: 90 3RF Dose Instruction: TAKE 1 TABLET EVERY EVENING Rx Instructions: TAKE 1 TABLET EVERY EVENING Januvia 100 mg tablet See Rx Instructions .ROUTE .COMPLEX Qty: 90 3RF Dose Instruction: TAKE 1 TABLET DAILY Rx Instructions: TAKE 1 TABLET DAILY febuxostat [Uloric] 40 mg tablet 40 mg PO DAILY Qty: 90 0RF glimepiride 2 mg tablet See Rx Instructions .ROUTE .COMPLEX Qty: 90 3RF Dose Instruction: TAKE 1 TABLET EVERY MORNING Rx Instructions: TAKE 1 TABLET EVERY MORNING <Celi Kerr December, TESTING COORDINATOR - Last Filed: 09/23/24 17:40> Follow-up/Referrals: Gavino Erickson MD [Primary Care Provider] - <Celi Kerr December, TESTING COORDINATOR - Last Filed: 09/23/24 17:40> Time of Disposition: 00:03 <Celi Kerr December, TESTING COORDINATOR - Last Filed: 09/23/24 17:40> 00:03 <Jigar Dukes MD - Last Filed: 09/24/24 00:03>
--- OUTSIDE RECORDS SUMMARY | 2024-09-23 21:44 | XMS_ITS | Clinical Summary ---
Author Organization [facility] Address [address] [place] [id number] Phone Care Team Providers Care Freight Router Name Role Phone Gavino Erickson MD Primary [...] Comments Blood Pressure 132/76 06/19/2022 9:09 AM PHARMACY SALES REPRESENTATIVE Pulse - - Temperature 35.8 C (96.5 F) 06/19/2022 9:09 AM PHARMACY SALES REPRESENTATIVE Respiratory Rate 18 06/19/2022 9:09 AM PHARMACY SALES REPRESENTATIVE Oxygen Saturation - - Inhaled Oxygen Concentration - - Weight 96.6 kg (213 lb) 06/19/2022 9:09 AM PHARMACY SALES REPRESENTATIVE Height 172.7 cm (5' 8 ) 06/19/2022 9:09 AM PHARMACY SALES REPRESENTATIVE Body Mass Index 32.39 06/19/2022 9:09 AM PHARMACY SALES REPRESENTATIVE Plan of Treatment Health Maintenance Due Date Last Done Comments Diabetic Foot Exam 12/02/1945 Ophthalmology Exam 12/02/1945 Pneumococcal PPSV23/PCV13 65 + Years / High and Highest Risk (2 of 4 - PPSV23 or PCV20) 08/14/2016 06/19/2016 Influenza Vaccine (#1) 2024 06/19/2016, 2013 Care Teams Freight Router Relationship Specialty Start Date End Date Gavino Erickson MD [address] [place] [address] PCP - General Family Medicine 04/20/19
--- OUTSIDE RECORDS SUMMARY | 2024-09-23 21:44 | XMS_ITS | Continuity of Care Document ---
Author Organization [facility] Address [address] [place] [address] Phone Care Team Providers Care Sales And Marketing Representative Name Role Phone Danna Geiger Unavailable Unavailable Advance Directives Directive Yes / No Effective Date File Name No Information Encounters Encounter Description Practice Location Reason(s) For Visit Diagnoses Date Provider Providers Copied on Encounter [facility], [address], [place], [place], [id number], [place] tel:[phone] [facility] No Information [address] , [address], [place], [address], [place]. tel:[phone] Family History Family Member Type Diagnosis Age At Onset No Information Payers Payer name Insurance type Covered constitution party ID Authoriza tion(s) Medicare [facility] [id number] Social History Type Description Quantity Date Captured [...]
[2024-09-23] MEDS: LACTATED RINGERS 1,000 ML 999 ML IV CONT (21:49)
[2024-09-23 21:54] LABS: Basophils Percent Auto 0.4 % (0.2-1.2); Eosinophils Absolute Auto 0.3 K/mm3 (0-0.3); Eosinophils Percent Auto 3.7 % (0-4.4); Hematocrit 35.4 % (42.0-52.0); Hemoglobin 11.8 g/dL (14.0-18.0); Immature Granulocyte Absolute 0.02 K/mm3 (0.00-0.031); Immature Granulocyte Percent A 0.3 % (0-0.5); Lymphocytes Absolute Auto 2.55 K/mm3 (0.9-3.2); Lymphocytes Percent Auto 32.3 % (18.3-44.2); Mean Corpuscular HGB Conc 33.3 g/dl (32-36); Mean Corpuscular Hemoglobin 29.3 pg (26-34); Mean Corpuscular Volume 87.8 fl (80-100); Mean Platelet Volume 9.1 fl (7.4-10.4); Monocytes Absolute Auto 0.8 K/mm3 (0.1-0.6); Monocytes Percent Auto 9.5 % (2.6-8.5); Neutrophils Absolute Auto 4.3 K/mm3 (1.3-6.7); Neutrophils Percent Auto 53.8 % (45.5-73.1); Platelet Count Result 177 k/mm3 (150-375); Red Blood Count 4.03 M/mm3 (4.6-6.20); Red Cell Distribution Width 13.7 % (11.5-14.5); White Blood Count 7.9 K/mm3 (4.5-10.0)
[2024-09-23 22:04] LABS: Alanine Aminotransferase 20 U/L (6-50); Albumin Level 3.7 g/dL (3.5-5.1); Alkaline Phosphatase 66 U/L (38-126); Anion Gap 10 mmol/L (4-12); Aspartate Amino Transferase 26 U/L (17-59); Bilirubin,Total 0.4 mg/dL (0.2-1.3); Blood Urea Nitrogen 23 mg/dL (9-20); Calcium 9.5 mg/dL (8.4-10.2); Carbon Dioxide 22 mmol/L (22-30); Chloride 106 mmol/L (98-107); Estimated CRCL calculation 40 ml/min; Estimated Glomerular Filt Rate 55; Glucose 101 mg/dL (65-110); Potassium 4.2 mmol/L (3.4-5.0); Sodium 138 mmol/L (137-145)
[2024-09-23 22:16] LABS: Troponin I 0.013 ng/mL (0.000-0.034)
== END 2024-09-24 00:26 | disposition home or self-care (01) ==
PROVIDERS: Emergency Medicine; Nurse Practitioner Family; Emergency Provider Student in an Organized Health Care Education/Training Program; PCP Family Medicine
DX: J10.1 Influenza due to other identified influenza virus with other respiratory manifestations (principal); Z20.822 Contact with and (suspected) exposure to COVID-19; I10 Essential (primary) hypertension; E78.2 Mixed hyperlipidemia; E11.9 Type 2 diabetes mellitus without complications; G47.33 Obstructive sleep apnea (adult) (pediatric); N40.0 Benign prostatic hyperplasia without lower urinary tract symptoms; M17.0 Bilateral primary osteoarthritis of knee; Z86.2 Personal history of diseases of the blood and blood-forming organs and certain disorders involving the immune mechanism; Z87.891 Personal history of nicotine dependence; Z79.899 Other long term (current) drug therapy; Z79.84 Long term (current) use of oral hypoglycemic drugs; R00.1 Bradycardia, unspecified; I44.0 Atrioventricular block, first degree; I51.7 Cardiomegaly
CPT/HCPCS: 36415; 71046; 80053; 84484; 85025; 87637; 93005; 96360; 99284; J7120

== ENCOUNTER 2025-01-17 09:19 | Outpatient (CLI) | payer MEDICARE, OTHER, SELFPAY ==
--- OUTSIDE RECORDS SUMMARY | 2025-01-17 10:00 | XMS_ITS | Clinical Summary ---
Author Organization [facility] j[facility] Address [address] [place] [id number] Phone Care Team Providers Care Arc Air Operator Name Role Phone Gavino Erickson MD Primary Care Provider [phone] Allergies Active Allergy Reactions Criticality Noted Date Comments Amoxicillin 04/20/2019 Sulfa Antibiotics 04/20/2019 Tetracyclines & Related 04/20/2019 Medications glimepiride (AMARYL) 2 MG tablet 1 tab/cap qday 0 2 Active albuterol HFA (PROVENTIL HFA;VENTOLIN HFA) 108 (90 Base) MCG/ACT inhaler 2 puffs q 4 - 6hr PRN 2 Active simvastatin (ZOCOR) 20 MG tablet 1 tab/cap qday 0 4 Active amitriptyline (ELAVIL) 50 MG tablet 1 tab/cap qhs 2 Active Febuxostat (ULORIC) 40 MG tablet 1 tab/cap qday 0 6 Active aspirin 81 MG tablet 1 tab/cap qday 2 Active TOVIAZ 4 MG tablet sustained-relea se 24 hour 0 Active finasteride (PROSCAR) 5 MG tablet 0 Active FREESTYLE LITE test strip USE TO CHECK 3 TIMES A DAY AND NEEDED 0 Active lisinopril (PRINIVIL,ZESTR IL) 20 MG tablet 0 Active JANUVIA 100 MG tablet 0 Active docusate sodium (COLACE) 100 MG capsule 1 Active tamsulosin (FLOMAX) 0.4 MG 24 hr capsule 1 Active lidocaine (LIDODERM) 5 % patch APPLY 1 PATCH TOPICALLY DAILY APPLY TO LOW BACK-ON 12 HR OFF 12 HR 2 Active metFORMIN XR 500 MG 24 hr tablet 2 Active mupirocin (BACTROBAN) 2 % ointment Apply topically 1 (one) time each day 2 Active Active Problems Problem Noted Date Diagnosed [...] Type 2 diabetes mellitus without complication Immunizations Immunization Administration Dates Next Due Influenza TIV (IM) [...] Recorded Sex Assigned at Not on file Legal Sex Male 9:10 AM MST Gender Identity Not on file Sexual Orientation Not on file Last Filed Vital Signs Vital Sign Reading Time Taken Comments Blood Pressure 132/76 06/19/2022 9:09 AM DATABASE DESIGN ANALYST Pulse - - Temperature 35.8 C (96.5 F) 06/19/2022 9:09 AM DATABASE DESIGN ANALYST Respiratory Rate 18 06/19/2022 9:09 AM DATABASE DESIGN ANALYST Oxygen Saturation - - Inhaled Oxygen Concentration - - Weight 96.6 kg (213 lb) 06/19/2022 9:09 AM DATABASE DESIGN ANALYST Height 172.7 cm (5' 8) 06/19/2022 9:09 AM DATABASE DESIGN ANALYST Body Mass Index 32.39 06/19/2022 9:09 AM DATABASE DESIGN ANALYST Plan of Treatment Health Maintenance Due Date Last Done Comments Pneumococcal PPSV23/PCV13 65 + Years / Low and Medium Risk (2 of 3 - PPSV23) 06/19/2017 06/19/2016 Influenza Vaccine (Season Ended) 2025 06/19/20 16, 06/22/2014 Insurance MEDICARE [facility] Care Teams Arc Air Operator Relationship Specialty Start Date End Date Gavino Erickson MD [address] [place] [address] PCP - General Family Medicine 04/20/19
[2025-01-17 10:39] LABS: Albumin Level 3.9 g/dL (3.5-5.1); Anion Gap 9 mmol/L (4-12); Blood Urea Nitrogen 33 mg/dL (9-20); Calcium 9.8 mg/dL (8.4-10.2); Carbon Dioxide 23 mmol/L (22-30); Chloride 107 mmol/L (98-107); Estimated Glomerular Filt Rate 48; Glucose 171 mg/dL (65-110); Phosphorus 3.6 mg/dL (2.5-4.5); Potassium 4.6 mmol/L (3.4-5.0); Sodium 139 mmol/L (137-145)
[2025-01-17 10:48] LABS: Parathyroid Intact 28.2 pg/mL (14.5-75.2)
[2025-01-17 10:52] LABS: Vitamin D 25 Hydroxy 84.3 ng/mL
[2025-01-17 13:01] LABS: Total Protein Urine Random < 5 mg/dL; Ur Ttl Prot Creatinine Ratio < 0.02 mg/mg (0-0.20)
== END 2025-01-17 09:20 | disposition home or self-care (01) ==
PROVIDERS: PCP Family Medicine; Visit Provider Internal Medicine Nephrology
DX: E11.22 Type 2 diabetes mellitus with diabetic chronic kidney disease (principal); I12.9 Hypertensive chronic kidney disease with stage 1 through stage 4 chronic kidney disease, or unspecified chronic kidney disease; N18.32 Chronic kidney disease, stage 3b; E55.9 Vitamin D deficiency, unspecified; N25.81 Secondary hyperparathyroidism of renal origin
CPT/HCPCS: 36415; 80069; 82306; 82570; 83970; 84156

== ENCOUNTER 2025-06-14 09:44 | Outpatient (CLI) | payer MEDICARE, OTHER, SELFPAY ==
--- OUTSIDE RECORDS SUMMARY | 2001-12-22 08:00 | XMS_ITS | Continuity of Care Document ---
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 [address] , [address], [place], [address], [place]. tel:[phone] Family History Family Member Type Diagnosis Age At Onset No Information Payers Payer name Insurance type Covered constitution party ID Authoriza tion(s) Medicare [facility] [id number] Social History Type Description Quantity Date Captured Comments Sex Male Smoking Status No Information Chief Complaint And Reason For Visit No Information Reason For Referral Reason For Referral No Information History Of Present Illness Encounter Date Complaint History Of Prese nt Illness No Information Functional Status Date Functional Assessmen t No Information Instructions Date Instruction Additional Infor mation No Information Assessments Type Assessment Date No Information Patient Care Teams Name Effective Dates (start - stop) Status Members No Information
--- NOTE | ~2025-06-14 | XR_ITS ---
EXAM/PROCEDURE: XR knee LT min 4V, XR knee RT min 4V HISTORY: M25.562 - Pain COMPARISON: None available. 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 There is marked vascular calcification. There is a moderate amount of joint fluid, left greater than right. There is moderate osteoarthritic type change involving both medial compartments with mild such changes in the lateral compartments and mild to moderate such changes in the patellofemoral compartments. IMPRESSION: No acute findings. Osteoarthritic type change Reviewed, dictated and finalized at location A. WRITER IMPRESSION: No acute findings. Osteoarthritic type change
--- OUTSIDE RECORDS SUMMARY | 2025-06-14 10:59 | XMS_ITS | Clinical Summary ---
Author Organization [facility] Address [address] [place] [phone] Phone Care Team Providers Care Production Or Plant Engineer Name Role Phone Gavino Erickson MD Primary Care Provider [phone] Allergies Active Allergy Reactions Criticality Noted Date [...] Comments Blood Pressure 132/76 06/19/2022 9:09 AM CANNERY TENDER ENGINEER Pulse - - Temperature 35.8 C (96.5 F) 06/19/2022 9:09 AM CANNERY TENDER ENGINEER Respiratory Rate 18 06/19/2022 9:09 AM CANNERY TENDER ENGINEER Oxygen Saturation - - Inhaled Oxygen Concentration - - Weight 96.6 kg (213 lb) 06/19/2022 9:09 AM CANNERY TENDER ENGINEER Height 172.7 cm (5' 8) 06/19/2022 9:09 AM CANNERY TENDER ENGINEER Body Mass Index 32.39 06/19/2022 9:09 AM CANNERY TENDER ENGINEER Plan of Treatment Health Maintenance Due Date Last Done Comments Pneumococcal PPSV23/PCV13 65 + Years / Low and Medium Risk (2 of 3 - PCV20 or PCV21) 06/19/2017 06/19/2016 Influenza Vaccine (#1) 2025 06/19/2016, 2013 Insurance MEDICARE [facility] Care Teams Production Or Plant Engineer Relationship Specialty Start Date End Date Gavino Erickson MD [address] [place] [address] PCP - General Family Medicine 04/20/19
== END 2025-06-14 09:45 | disposition home or self-care (01) ==
PROVIDERS: PCP Family Medicine; Visit Provider Nurse Practitioner Adult Health
DX: M17.12 Unilateral primary osteoarthritis, left knee (principal); M17.11 Unilateral primary osteoarthritis, right knee
CPT/HCPCS: 73564

== ENCOUNTER 2025-06-20 06:28 | Day surgery (SDC) | payer MEDICARE, OTHER, SELFPAY ==
[2025-06-16 08:30] VITALS: BMI 30.4
--- NOTE | ~2025-06-20 | XR_ITS ---
EXAMINATION: XR fluoroscopy no charge DATE: 06/20/2025 10:30 INDICATION: Right genicular and vastus intermedius nerve blocks. TECHNIQUE: 8 fluoroscopic images of the right knee were obtained during pain management procedure performed by Dr. Lainez. Radiologist was not present for the imaging or procedure. The amount of fluoroscopy time used during this procedure was 0.6 minutes. The cumulative radiation dose was 2.43 mGy. COMPARISON: None. FINDINGS: Images demonstrate injected contrast extending into the soft tissues from needle needle tips positioned along side the medial margin of the proximal metaphyseal region of the right tibia and the anterior, medial and lateral margins of the metaphyseal region of the distal right femur. IMPRESSION: 1. Fluoroscopy utilized during pain management procedure at the right knee. See procedure note for further detail. Reviewed, dictated and finalized at location A. IDE MAINTENANCE WORKER
--- NOTE | 2025-06-20 06:40 | WPDHPUPDATE1 ---
History and Physical Update Update Date/Time: 06/20/25 06:40 History and Physical has been reviewed, including an updated exam of the patient. There are NO changes in the patient's condition. Risks, benefits, and alternatives have been discussed and questions answered. Patient agrees to proceed with procedure.
--- NOTE | 2025-06-20 06:41 | W.PM.PROC2 ---
Procedure Note - Detailed Date of Procedure 06/20/25 Pre-op Diagnosis Unilateral Primary Osteoarthritis Knee Post-op Diagnosis Same Procedure Performed Diagnostic Blockade of the Right Superior Medial, Inferior Medial and Superior Lateral Genicular Nerves, Vastus Intermedius nerve under Fluoroscopic Guidance (4 nerves blocked). Surgeon Trevor Lainez MD Anesthesia Local Description of Procedure INFORMED CONSENT: Risks, benefits and alternatives to the procedure were discussed in detail with the patient who expressed explicit understanding and consent to proceed. Patient was informed verbally and in written form regarding the risks associated with the procedure including the low risk of serious infection, bleeding/bruising, allergic reaction, nerve injury, paralysis, procedural site pain or discomfort, worsening pain and/or mobility, failure to treat and disfigurement. The patient expressed explicit understanding and consent to proceed. All materials required for the procedure were available prior to procedure start. Site and side was marked prior to procedure and confirmed in the presence of the patient. PROCEDURE IN DETAIL: The patient was brought to the procedural suite and placed in the supine position. Patient was made comfortable with use of pillows under the head/shoulder, knees and ankles. Skin overlying anterior, medial and lateral surface of the knee joint on the right side was prepared broadly with ChloraPrep applicator and draped in a sterile manner. Aseptic technique was used throughout. The intersection between the femoral shaft and the medial femoral condyle, lateral femoral condyle and between the medial tibial plateau and tibial shaft were visualized in the AP view, as well as the line bisecting the femur and perpendicular to the short axis of the joint space 6cm proximal to the superior border of the patella with the knee partially flexed at 120 degrees. Local anesthesia was established by infiltration with approximately 3 mL of 2% lidocaine via a 1-1/2 inch 27-gauge needle at the skin and soft tissues overlying each site. A 25-gauge 3.5 inch quincke spinal needle was advanced until the needle tip contacted periosteum at each location, and was then walked off medially to approximate the position of the Superior and Inferior Medial Genicular nerves or laterally to approximate the position of the Superior Lateral Genicular nerve, and just superficial to femoral periosteum 6cm proximal to the patella to block the Vastus intermedius nerve. Needle depth was verified in the lateral view revealing appropriate needle positioning at each location. 0.5ml of Omnipaque 300 contrast medium was injected at each site confirming appropriate perineural spread of contrast without evidence of intravascular or intra-articular spread. After repeat negative aspiration, 0.5-1.0ml of 0.5% PF Bupivacaine was injected at each site to block the respective nerves. Needle was removed completely intact without difficulty. Images were saved and documented in the patient chart. Patient's skin was cleansed and sterile bandage applied. The patient tolerated the procedure well. The patient was transported to the recovery area in stable condition where they were observed for an appropriate amount of time prior to discharge, without evidence of complication. Patient was instructed on the appropriate completion of a pain diary over the next 12-24 hours. The patient was instructed to avoid excessive activity for the next 48 hours, including climbing and frequent use of stairs. Showers only for 48 hours. They were instructed not to drive or operate heavy machinery for 24 hours. They are to monitor for severe headaches, fevers, chills, night sweats, erythema/swelling at the site or any other signs of infection, bleeding/bruising, bowel or bladder changes as well as new pain, weakness or numbness in the upper or lower extremity. Should they notice these changes, they are instructed to call our office immediately or report directly to the nearest Emergency Department if no answer or if after posted office hours. CONTRAST WASTED: 28 mL Omnipaque 300. Complications No immediate complications Condition Stable Disposition Same day [facility] Billing Surgery - Charge Forward: Surgery Billing
[2025-06-20 07:45] VITALS: BP 168/73; PULSE 63; RESP 18; TEMP 36.5; O2SAT 99
[2025-06-20 08:15] VITALS: BP 188/88; PULSE 58; RESP 16; O2SAT 98
[2025-06-20] MEDS: BUPivacaine HCL 0.5% 10 ML AMP INFILTRATE (08:17)
[2025-06-20 08:20] VITALS: BP 172/81; PULSE 55; RESP 16; O2SAT 98
== END 2025-06-20 08:41 | disposition home or self-care (01) ==
PROVIDERS: PCP Family Medicine; Visit Provider Anesthesiology Pain Medicine
PROC: (CPT 64454; principal; 2025-06-20 09:00)
DX: M17.11 Unilateral primary osteoarthritis, right knee (principal); M25.561 Pain in right knee
CPT/HCPCS: 64454; 99199

== ENCOUNTER 2025-07-18 09:14 | Day surgery (SDC) | payer MEDICARE, OTHER, SELFPAY ==
--- NOTE | ~2025-07-18 | XR_ITS ---
EXAM/PROCEDURE: XR fluoroscopy no charge HISTORY: DIAG/PROG RIGHT KNEE NERVE BLK COMPARISON: None available. TECHNIQUE: Fluoroscopy no charge FLUOROSCOPY TIME: 50.5 seconds Dose: 3.17 mGy IMPRESSION: Fluoroscopic images provided for pain service. No radiologist present. See procedure/operative note for complete evaluation. Reviewed, dictated and finalized at location A. TECHNICIAN IMPRESSION: Fluoroscopic images provided for pain service. No radiologist present. See proc edure/operative note for complete evaluation.
--- NOTE | 2025-07-18 10:26 | WPDHPUPDATE1 ---
History and Physical Update Update Date/Time: 07/18/25 10:26 History and Physical has been reviewed, including an updated exam of the patient. There are NO changes in the patient's condition. Risks, benefits, and alternatives have been discussed and questions answered. Patient agrees to proceed with procedure.
--- NOTE | 2025-07-18 10:27 | W.PM.PROC2 ---
Procedure Note - Detailed Date of Procedure 07/18/25 Pre-op Diagnosis RT Knee Pain, Primary Osteoarthritis Post-op Diagnosis Same Procedure Performed Diagnostic Blockade of the right Superior Medial, Inferior Medial and Superior Lateral Genicular Nerves, Vastus Intermedius nerve under Fluoroscopic Guidance (4 nerves blocked). Surgeon Trevor Lainez MD Anesthesia Local Description of Procedure INFORMED CONSENT: Risks, benefits and alternatives to the procedure were discussed in detail with the patient who expressed explicit understanding and consent to proceed. Patient was informed verbally and in written form regarding the risks associated with the procedure including the low risk of serious infection, bleeding/bruising, allergic reaction, nerve injury, paralysis, procedural site pain or discomfort, worsening pain and/or mobility, failure to treat and disfigurement. The patient expressed explicit understanding and consent to proceed. All materials required for the procedure were available prior to procedure start. Site and side was marked prior to procedure and confirmed in the presence of the patient. PROCEDURE IN DETAIL: The patient was brought to the procedural suite and placed in the supine position. Patient was made comfortable with use of pillows under the head/shoulder, knees and ankles. Skin overlying anterior, medial and lateral surface of the knee joint on the right side was prepared broadly with ChloraPrep applicator and draped in a sterile manner. Aseptic technique was used throughout. The intersection between the femoral shaft and the medial femoral condyle, lateral femoral condyle and between the medial tibial plateau and tibial shaft were visualized in the AP view, as well as the line bisecting the femur and perpendicular to the short axis of the joint space 6cm proximal to the superior border of the patella with the knee partially flexed at 120 degrees. Local anesthesia was established by infiltration with approximately 3 mL of 2% lidocaine via a 1-1/2 inch 27-gauge needle at the skin and soft tissues overlying each site. A 25-gauge 3.5 inch quincke spinal needle was advanced until the needle tip contacted periosteum at each location, and was then walked off medially to approximate the position of the Superior and Inferior Medial Genicular nerves or laterally to approximate the position of the Superior Lateral Genicular nerve, and just superficial to femoral periosteum 6cm proximal to the patella to block the Vastus intermedius nerve. Needle depth was verified in the lateral view revealing appropriate needle positioning at each location. 0.5ml of Omnipaque 300 contrast medium was injected at each site confirming appropriate perineural spread of contrast without evidence of intravascular or intra-articular spread. After repeat negative aspiration, 0.5-1.0ml of 2.0% PF lidocaine was injected at each site to block the respective nerves. Needle was removed completely intact without difficulty. Images were saved and documented in the patient chart. Patient's skin was cleansed and sterile bandage applied. The patient tolerated the procedure well. The patient was transported to the recovery area in stable condition where they were observed for an appropriate amount of time prior to discharge, without evidence of complication. Patient was instructed on the appropriate completion of a pain diary over the next 12-24 hours. The patient was instructed to avoid excessive activity for the next 48 hours, including climbing and frequent use of stairs. Showers only for 48 hours. They were instructed not to drive or operate heavy machinery for 24 hours. They are to monitor for severe headaches, fevers, chills, night sweats, erythema/swelling at the site or any other signs of infection, bleeding/bruising, bowel or bladder changes as well as new pain, weakness or numbness in the upper or lower extremity. Should they notice these changes, they are instructed to call our office immediately or report directly to the nearest Emergency Department if no answer or if after posted office hours. CONTRAST WASTED: 28 mL Omnipaque 300. Complications No immediate complications Condition Stable Disposition Same day [facility] Billing Surgery - Charge Forward: Surgery Billing
[2025-07-18 10:32] VITALS: BMI 30.5
[2025-07-18 10:37] VITALS: BP 148/66; PULSE 56; RESP 20; TEMP 36.3; O2SAT 97
[2025-07-18 10:51] VITALS: BP 152/67; PULSE 54; RESP 20; O2SAT 95
[2025-07-18] MEDS: LIDOCAINE 1% PF INJ 5 ML VIAL INFILTRATE (10:54)
[2025-07-18] MEDS: LIDOCAINE 2% PF LOCAL INJ 5 ML VIAL (10:54)
[2025-07-18 10:56] VITALS: BP 146/65; PULSE 52; RESP 22; O2SAT 96
[2025-07-18 11:03] VITALS: BP 159/53; PULSE 52; RESP 16; O2SAT 100
== END 2025-07-18 11:18 | disposition home or self-care (01) ==
PROVIDERS: PCP Family Medicine; Visit Provider Anesthesiology Pain Medicine
PROC: (CPT 64454; principal; 2025-07-18 10:50)
DX: M25.561 Pain in right knee (principal); M17.11 Unilateral primary osteoarthritis, right knee
CPT/HCPCS: 64454; 99199